=== PATIENT | male | born 1940 | race Caucasian/White ===

== ENCOUNTER 2019-04-12 12:05 | Emergency (ER) | payer MEDICARE, OTHER, SELFPAY ==
[2019-04-12 12:10] VITALS: BP 144/88; PULSE 70; RESP 16; TEMP 36.6; O2SAT 96; BMI 22.8
--- NOTE | 2019-04-12 12:16 | XRR_ITS ---
PROCEDURE INFORMATION: Exam: XR Chest, 1 View Exam date and time: 04/12/2019 12:31 PM Age: 78 years old Clinical indication: Other: Dizzy, nausea, not well; Prior surgery; Surgery date: 6+ months; Surgery type: Open heart TECHNIQUE: Imaging protocol: XR of the chest Views: 1 view. COMPARISON: CR Chest 2 views* [id number] 09/02/2017 1:16 PM FINDINGS: Lungs: Unremarkable. No consolidation. Pleural space: Unremarkable. No pleural effusion. No pneumothorax. Heart/Mediastinum: Unremarkable. No cardiomegaly. Bones/joints: Metallic sternotomy wires are in place. Comparison to prior examination left lower lobe pleural effusion has now resolved XR/XR chest 1V [id number] IMPRESSION: No acute findings. Stable metallic sternotomy wires in place.
[2019-04-12 12:31] LABS: Basophils % 0.5 %; Eosinophils # 0.1 10^3/uL (0.0-0.8); Eosinophils % 0.8 %; Lymphocytes # 0.9 10^3/uL (0.8-4.8); Lymphocytes % 10.7 %; Mean Corpuscular HGB Conc 32.6 g/dL (30.0-36.0); Mean Corpuscular Hemoglobin 30.9 pg (28.0-34.0); Mean Corpuscular Volume 94.9 fL (80-94); Mean Platelet Volume 10.2 fL (7.4-10.4); Monocytes # 0.3 10^3/uL (0.2-0.9); Monocytes % 3.2 %; Neutrophils # 7.4 10^3/uL (1.8-7.7); Neutrophils % 84.6 %; Nucleated Red Blood Cells % 0 %; Platelet Count 122 10^3/cmm (130-400); Red Blood Count 4.53 10^6/uL (4.1-5.3); Red Cell Distribution Width 12.7 % (12.1-15.1); White Blood Count 8.7 10^3/uL (4.0-10.0)
[2019-04-12 12:49] LABS: Alanine Aminotransferase 24 U/L (0-41); Albumin Level 4.5 g/dL (3.5-5.2); Alkaline Phosphatase 109 IU/L (40-130); Anion Gap 15.5 (5-19); Aspartate Amino Transferase 29 U/L (0-40); Blood Urea Nitrogen 21 mg/dL (8-23); Calcium 10.2 mg/Dl (8.8-10.2); Carbon Dioxide 25 mmol/L (22-29); Chloride 102 mmol/L (98-107); Globulin 2.6 g/dL (1.3-4.6); Glucose 151 mg/dL (74-106); Potassium 4.5 mmol/L (3.5-5.1); Sodium 138 mmol/L (136-145); Total Bilirubin 0.6 mg/dL (0.15-1.2); Total Protein 7.1 g/dL (6.6-8.7)
[2019-04-12 12:53] LABS: Influenza A by IFA Negative (Negative); Influenza B by IFA Negative (Negative)
--- NOTE | 2019-04-12 13:56 | ED_ITS ---
Entered by Song Chanel, acting as scribe for Nick Kaur DO Apr 12, 2019 12:05 HPI - Dizziness General: Chief Complaint: Dizziness Stated Complaint: Dizzy, not feeling well Time Seen by Provider: 04/12/19 13:56 History of Present Illness: HPI Narrative: 78 yo male presents with dizziness and nausea. Pt states that he dry heaved since last night. Pt denies chest pain or shortness of breath. Pt states that he will have tunneled vision every so often. pt states that MD elicited complaint: dizziness and difficulty walking Pertinent past history: inner ear problems Description: sense of movement and difficulty walking Exacerbating factors: movement/ambulation Associated symptoms: Reports ear discharge, ear pressure and nausea; Denies chest pain, chills, headache(s), malaise, palpitations or syncope Associated neuro symptoms: Deny confusion or numbness in extremities Review of Systems Const: Denies: fever, chills, body aches, fatigue, malaise or night sweats Eyes: Reports: change in vision; Denies: blurry vision ENMT: Reports: ear discharge Card: Denies: chest pain, palpitations, irregular heart rhythm, edema, syncope, shortness of breath on exertion, shortness of breath when lying down or leg pain with exertion Resp: Denies: shortness of breath, productive cough, non-productive cough or wheezing GI: Reports: nausea : Denies: flank pain, difficulty urinating, painful urination, urinary frequency, urinary urgency, urinary incontinence or blood in urine Musc: Denies: neck pain, back pain, extremity pain, extremity swelling, joint pain or joint swelling Skin/Breast: Denies: rash, itching or redness Neuro: Reports: difficulty walking, dizziness and vertigo; Denies: headache, numbness in extremities, weakness in extremities, changes in sensation, lack of coordination, frequent falls or confusion Psych: Denies: anxiety, depression, loss of interest, visual hallucinations, a uditory hallucinations, suicidal ideation or homicidal ideation Endo: Denies: excessive urination, excessive thirst, tired all the time or cold intolerance Mat/Lymph: Denies: easy bruising, easy bleeding, petechiae, enlarged lymph nodes or tender lymph nodes PFSH ED PFSH: Statuses (acute, chronic, etc) shown below reflect problem list status as previously entered and may not be historically accurate Medical History CHF (congestive heart failure) (Acute) Diabetes (Acute) Hypertension (Acute) Social History Smoking and tobacco status: never smoked Physical Exam Const: COMMON NORMALS: average body habitus, oriented x3 and alert GENERAL APPEARANCE: cooperative, comfortable, well kempt and well developed NUTRITIONAL APPEARANCE: not obese ORIENTATION/CONSCIOUSNESS: Yes awake, Yes oriented to person and Yes oriented to place HENMT: COMMON NORMALS: normocephalic, head/scalp atraumatic, EAC's normal, TM's normal bilaterally, external nose normal, moist oral mucous membranes and oropharynx normal HEAD & SCALP: normocephalic and atraumatic NOSE: external nose normal EXTERNAL AUDITORY CANAL: EAC's normal TYMPANIC MEMBRANE: TM's normal bilaterally MOUTH: oral and palatal mucosa normal, lip normal and tongue normal THROAT: posterior oropharynx normal and tonsils normal Eye: COMMON NORMALS: PERRL, EOMs intact bilaterally, conjunctivae normal and no scleral icterus CONJUNCTIVA: Yes conjunctivae normal PUPIL: Yes PERRL Neck/C-Spine: COMMON NORMALS: full ROM, no lymphadenopathy, supple, no meningeal signs and thyroid normal THYROID: thyroid normal and asymmetrical Lymph: LYMPHATIC: no lymphadenopathy noted Resp: COMMON NORMALS: normal respiratory effort, no retractions, no use of accessory muscles and clear to auscultation bilaterally AUSCULTATION: clear to auscultation bilaterally Cardio: COMMON NORMALS: regular rate and regular rhythm RATE: regular rate RHYTHM: regular rhythm HEART SOUNDS: no murmurs GI: COMMON NORMALS: normal to inspection, nondistended, normoactive bowel sounds, soft to palpation and no hepatosplenomegaly PALPATION: Yes soft and Yes no hepatosplenomegaly : COMMON NORMALS: Yes no CVA tenderness BLADDER/KIDNEY EXAM: Yes no CVA tenderness Back/Pelvis: COMMON NORMALS: no CVA tenderness LUMBAR SPINE/LOWER BACK: Yes normal to inspection Extremity: COMMON NORMALS: no clubbing, cyanosis or edema, no calf tenderness and no pedal edema Neuro: COMMON NORMALS: oriented x3 SENSORIUM/ORIENTATION: Yes alert, Yes oriented to person and Yes oriented to place MENINGEAL SIGNS: Yes no meningeal signs Psych: APPEARANCE: Yes well kempt Skin: COMMON NORMALS: no rashes or lesions noted and skin turgor normal GENERAL SKIN EXAM: no rashes or lesions noted and turgor normal Course ED course: Symptoms reproducible with change in position or movement of head. Continues to have intermittent nausea and vomiting. Did give him some Ativan that helped relieve it. Will discharge home with Ativan and meclizine referral for vestibular rehab with PT. Vital Signs: Vital signs: Vital Signs Temperature 97.8 F 04/12/19 12:10 Pulse Rate 70 04/12/19 12:10 Respiratory Rate 16 04/12/19 12:10 Blood Pressure 144/88 04/12/19 12:10 Pulse Oximetry 96 04/12/19 12:10 MDM - Dizziness Lab Data: Labs: Lab Results 04/12/19 04/12/19 04/12/19 Range/Units 12:20 12:25 12:25 WBC 8.7 (4.0-10.0) 10^3/ uL RBC 4.53 (4.1-5.3) 10^6/u L Hgb 14.0 (11.7-16.6) g/dL Hct 43.0 (42.0-52.0) % MCV 94.9 H (80-94) fL MCH 30.9 (28.0-34.0) pg MCHC 32.6 (30.0-36.0) g/dL RDW 12.7 (12.1-15.1) % Plt Count 122 L (130-400) 10^3/c mm MPV 10.2 (7.4-10.4) fL Neut % (Auto) 84.6 % Lymph % (Auto) 10.7 % [place] % (Auto) 3.2 % Eos % (Auto) 0.8 % Baso % (Auto) 0.5 % Neut # (Auto) 7.4 (1.8-7.7) 10^3/u L Lymph # (Auto) 0.9 (0.8-4.8) 10^3/u L [place] # (Auto) 0.3 (0.2-0.9) 10^3/u L Eos # (Auto) 0.1 (0.0-0.8) 10^3/u L Baso # (Auto) 0.0 (0.0-0.1) 10^3/u L Nucleated RBC % (a uto) 0 % Nucleated RBCs # 0.0 /100WBC Sodium 138 (136-145) mmol/L Potassium 4.5 (3.5-5.1) mmol/L Chloride 102 (98-107) mmol/L Carbon Dioxide 25 (22-29) mmol/L Anion Gap 15.5 (5-19) BUN 21 (8-23) mg/dL Creatinine 0.9 (0.7-1.2) mg/dL Glucose 151 H (74-106) mg/dL Calcium 10.2 (8.8-10.2) mg/Dl Total Bilirubin 0.6 (0.15-1.2) mg/dL AST 29 (0-40) U/L ALT 24 (0-41) U/L Alkaline Phosphata se 109 (40-130) IU/L Total Protein 7.1 (6.6-8.7) g/dL Albumin 4.5 (3.5-5.2) g/dL Globulin 2.6 (1.3-4.6) g/dL Influenza Type A A g Negative (Negative) POC Influenza B Ag Negative (Negative) Discharge Plan Discharge Patient Disposition: Home, Self-Care Clinical Impression: Acute labyrinthitis Condition: Stable Prescriptions: New meclizine 25 mg tablet 25 mg PO QID PRN (Reason: dizziness) Qty: 20 RF: 0 Ativan 0.5 mg tablet 0.5 mg PO Q6H PRN (Reason: dizziness) Qty: 20 RF: 0 Referrals: Emigdio Garcia MD [Primary Care Provider] - Activity Restrictions/Additional Instructions: Follow-up with your physician if not improving Coding Level of Care Code ED Offender Job Retention Specialist for Chg Fwd Exam Problem Focused The documentation recorded by the Darío adrian Kialy, accurately reflects the service I personally performed and the decisions made by Natasha russell Curtis L, DO Apr 12, 2019 12:05
--- NOTE | 2019-04-12 14:37 | CTR_ITS ---
PROCEDURE INFORMATION: Exam: CT Head Without Contrast Exam date and time: 04/12/2019 2:44 PM Age: 78 years old Clinical indication: Patient HX: Severe dizziness x 3days. Popping of left ear. ; Additional info: Dizziness, loss of balance TECHNIQUE: Imaging protocol: Computed tomography of the head without contrast. Total DLP: 818.77 mGy-cm Radiation optimization: All CT scans at this facility use at least one of these dose optimization techniques: automated exposure control; mA and/or kV adjustment per patient size (includes targeted exams where dose is matched to clinical indication); or iterative reconstruction. COMPARISON: CT head wo con* [id number] 07/06/2016 1:57 PM FINDINGS: Brain: There are moderate periventricular and subcortical lucencies consistent with chronic microvascular ischemic changes. Chronic lacunar infarct in the left basal ganglia. Ventricles: Ventricles and sulci are prominent consistent with age appropriate parenchymal volume loss. Bones/joints: Unremarkable. No acute fracture. Sinuses: Visualized sinuses are unremarkable. No fluid levels. Mastoid air cells: Visualized mastoid air cells are well aerated. Soft tissues: Unremarkable. CT/CT head wo con* [id number] IMPRESSION: No acute intracranial abnormality. Chronic microvascular ischemic changes. Radiation Dose CTDIVOL = (mGy): DLP = 818.77 (mGy-cm)
[2019-04-12] MEDS: LORazepam 2 mg/mL INJ 1 mL 0.5 MG IM (15:49)
[2019-04-12 16:52] VITALS: BP 138/79; PULSE 86; RESP 20; O2SAT 96
--- NOTE | 2019-04-14 15:11 | DCPLANNER ---
safety and health manager had message to schedule PT Vestibular rehab for patient. safety and health manager called physical therapy and left a voicemail for clinic to call case making machine operator back about a referral to the clinic.
== END 2019-04-12 16:53 | disposition home or self-care (01) ==
PROVIDERS: Emergency Provider Family Medicine; Family Provider Family Medicine; PCP Family Medicine
DX: H83.09 Labyrinthitis, unspecified ear (principal); I11.0 Hypertensive heart disease with heart failure; I50.9 Heart failure, unspecified; E11.9 Type 2 diabetes mellitus without complications
CPT/HCPCS: 36415; 70450; 71045; 80053; 85025; 87804; 96372; 99282; J2060

== ENCOUNTER → 2019-06-01 10:02 | Outpatient (BNVA) | payer MEDICARE, OTHER, SELFPAY | PROVIDERS: Family Provider Family Medicine; PCP Family Medicine; Visit Provider Otolaryngology | DX: H90.3 Sensorineural hearing loss, bilateral (principal); H69.82 Other specified disorders of Eustachian tube, left ear; J30.89 Other allergic rhinitis; J34.2 Deviated nasal septum; J34.3 Hypertrophy of nasal turbinates | CPT/HCPCS: 96372; 99204; 99214; J3301 ==

== ENCOUNTER 2021-02-08 08:51 | Emergency (ER) | payer MEDICARE, SELFPAY ==
--- NOTE | 2021-02-08 08:56 | XRR_ITS ---
PROCEDURE INFORMATION: Exam: XR Chest Exam date and time: 02/08/2021 8:56 AM Age: 80 years old Clinical indication: Other: Syncope TECHNIQUE: Imaging protocol: XR of the chest. Views: 1 view. Total images: 1 COMPARISON: CR XR chest 1V [id number] 04/12/2019 12:27 PM FINDINGS: Lungs: Unremarkable. No consolidation. Pleural spaces: Unremarkable. No pleural effusion. No pneumothorax. Heart/Mediastinum: Prior coronary artery bypass grafting. Vasculature: Atherosclerosis is evident. Bones/joints: Osseous structures are unchanged from the prior exam. XR/XR chest 1V portable [id number] IMPRESSION: No acute cardiopulmonary process. Radiation Dose CTDIVOL = (mGy): DLP = (mGy-cm)
--- NOTE | 2021-02-08 08:56 | CTR_ITS ---
PROCEDURE INFORMATION: Exam: CT Head Without Contrast Exam date and time: 02/08/2021 8:56 AM Age: 80 years old Clinical indication: Syncope and collapse TECHNIQUE: Imaging protocol: Computed tomography of the head without contrast. Total images: 210 Radiation optimization: All CT scans at this facility use at least one of these dose optimization techniques: automated exposure control; mA and/or kV adjustment per patient size (includes targeted exams where dose is matched to clinical indication); or iterative reconstruction. COMPARISON: CT head wo con* [id number] 04/12/2019 3:19 PM RADIATION DOSE METRICS: Total DLP (mGy-cm): 886.02 FINDINGS: Brain: Global brain atrophy and chronic white matter ischemic changes are present. Cerebral ventricles: Ventricles are appropriate in size for degree of atrophy. Paranasal sinuses: Visualized sinuses are unremarkable. No fluid levels. Mastoid air cells: Visualized mastoid air cells are well aerated. Bones/joints: Temporomandibular joint degeneration. Soft tissues: Unremarkable. CT/CT head wo con* [id number] IMPRESSION: No acute intracranial abnormality. Radiation Dose CTDIVOL = (mGy): DLP = 886.02 (mGy-cm)
--- NOTE | 2021-02-08 08:57 | ECG_ITS ---
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 Measurements Intervals [place] Rate: 68 P: 54 [place]: 162 QRS: -44 QRSD: 141 T: 81 QT: 408 QTc: 435 Interpretive Statements SINUS RHYTHM LEFT AXIS DEVIATION [QRS AXIS < -30] RIGHT BUNDLE BRANCH BLOCK [120+ ms QRS DURATION, UPRIGHT V1, 40+ ms S IN I/aVL/V4/V5/V6] ANTEROSEPTAL MYOCARDIAL INFARCTION , OF INDETERMINATE AGE [40+ ms Q WAVE IN V1-V4] Compared to ECG 08/19/2017 02:12:12 Myocardial infarct finding now present Atrial abnormality no longer present Electronically Signed On 02-09-2021 13:19:21 DIRECTOR OF HUMAN RESOURCES by Marely Echeverria M.D. [id number]
--- NOTE | 2021-02-08 08:57 | W.ED.SYNCOPE ---
HPI - Syncope General: Chief Complaint: Syncope Stated Complaint: UNRESPONSIVE ON SCENE Time Seen by Provider: 02/08/21 08:53 History of Present Illness: HPI narrative: 80-year-old male with history of diabetes presents after syncopal episode. States he was working in the yard earlier this morning. He felt diffuse weakness but denies any focal numbness weakness tingling vision change hearing change or vertigo. He came back inside and sat in his chair and was witnessed by his to have a brief syncopal episode while sitting. He became completely unresponsive for several seconds. No convulsions. Did not appear confused after the fact. He denies any focal pain. Denies chest pain shortness of breath or palpitations specifically. Review of Systems Narrative: - CONSTITUTIONAL: Denies weight loss, fever and chills. - HEENT: Denies changes in vision and hearing. - RESPIRATORY: Denies SOB and cough. - CV: Denies palpitations and CP. - GI: Denies abdominal pain, nausea, vomiting and diarrhea. - : Denies dysuria and urinary frequency. - MSK: Denies myalgia and joint pain. - SKIN: Denies rash and pruritus. - NEUROLOGICAL: Denies headache, weakness, numbness. - PSYCHIATRIC: Denies suicidal ideation PFSH ED PFSH: Medical History Allergic rhinitis Aortic valve stenosis Atherosclerotic heart disease CHF (congestive heart failure) Chronic eustachian tube dysfunction Deviated septum Diabetes Hx of cardiomyopathy Hypertension Nasal turbinate hypertrophy Nonalcoholic fatty liver disease Sensorineural hearing loss Valvular heart disease Surgical History Hx of CABG Family History Father CAD (coronary artery disease) Diabetes Lung disease Grandmother Diabetes Family/Other Cancer Mother Dementia Denies family history of Clotting disorder Chronic kidney disease (CKD) Suicide Anesthesia complication Bleeding disorder Stroke Social History Smoking and tobacco status: never smoked Alcohol intake: never Physical Exam Narrative: EXAM NARRATIVE: - GENERAL: Alert and oriented x 3. No acute distress. Well-nourished. - EYES: EOMI. Anicteric. - HENT: Atraumatic, no C-spine tenderness. Moist mucous membranes. No scleral icterus. No cervical lymphadenopathy. - LUNGS: Clear to auscultation bilaterally. No accessory muscle use. Equal lung sounds bilaterally. No respiratory distress. - CARDIOVASCULAR: Well-healed midline sternotomy scar in place. Regular rate and rhythm. No murmur. No JVD. - ABDOMEN: Soft, non-tender and non-distended. Negative CVA tenderness bilaterally, no rebound or guarding, negative Montero sign. No palpable masses. - EXTREMITIES: No edema. Non-tender. - SKIN: No rashes or lesions. Warm. - NEUROLOGIC: No meningismus or focal neurological deficits. CN II-XII grossly intact. - PSYCHIATRIC: Cooperative. Appropriate mood and affect. Course Vital Signs: Vital signs: Vital Signs Temperature 97.4 F L 02/08/21 09:05 Pulse Rate 84 02/08/21 13:36 Respiratory Rate 18 02/08/21 13:36 Blood Pressure 112/72 02/08/21 13:36 Pulse Oximetry 92 02/08/21 13:36 MDM - Syncope MDM Narrative: Medical decision making narrative: 80-year-old male presents after syncopal episode. Nonfocal neurologic exam. Denies any focal pain. EKG does not reveal any sign of acute ischemia or other acute abnormality. Initial high-sensitivity troponin mildly elevated 30s but repeat is downtrending. Denies any chest pain or shortness of breath. BNP very mildly elevated but no signs of volume overload. Discussed with hospitalist, Dr. Hemphill, and at this time recommends echocardiogram in the emergency department and does not recommend admission. Echocardiogram was ordered. Discussed results with is technician Dr. Echeverria, who states that at this time there is an ejection fraction in the 30s and some wall motion abnormality that is exactly the same as previous echo. This time does not recommend admission believe echo stable. Does recommend outpatient event monitor which was ordered. At this time I believe patient would be safe for discharge and outpatient follow-up. Return precautions provided. Plan was reviewed with the patient who expressed understanding. Questions answered. Patient will follow up with PCP. Patient discharged in stable condition. Lab Data: Labs: Lab Results 02/08/21 02/08/21 02/08/21 08:25 08:25 08:25 WBC 13.7 10^3/uL H 10 ^3/uL (4.0-10.0) RBC 4.47 10^6/uL 10^6 /uL (4.1-5.3) Hgb 14.2 g/dL g/dL (11.7-16.6) Hct 44.2 % % (42.0-52.0) MCV 98.9 fl H fl (80-94) MCH 31.8 pg pg (28.0-34.0) MCHC 32.1 g/dL g/dL (30.0-36.0) RDW 12.8 % % (12.1-15.1) Plt Count 149 10^3/cmm 10^3 /cmm (130-400) MPV 11.0 fL H fL (7.4-10.4) Neut % (Auto) 70.7 % % Lymph % (Auto) 19.5 % % [place] % (Auto) 6.8 % % Eos % (Auto) 2.1 % % Baso % (Auto) 0.5 % % Neut # (Auto) 9.68 10^3/uL H 10 ^3/uL (1.8-7.7) Lymph # (Auto) 2.7 10^3/uL 10^3/ uL (0.8-4.8) [place] # (Auto) 0.9 10^3/uL 10^3/ uL (0.2-0.9) Eos # (Auto) 0.3 10^3/uL 10^3/ uL (0.0-0.8) Baso # (Auto) 0.1 10^3/uL 10^3/ uL (0.0-0.1) Nucleated RBC % (a uto) 0 % % Nucleated RBCs # 0.0 /100WBC /100W BC Sodium 139 mmol/L mmol/L (136-145) Potassium 4.2 mmol/L mmol/L (3.5-5.1) Chloride 99 mmol/L mmol/L (98-107) Carbon Dioxide 28 mmol/L mmol/L (22-29) Anion Gap 16.2 (5-19) BUN 18 mg/dL mg/dL (8-23) Creatinine 0.7 mg/dL mg/dL (0.7-1.2) GFR Calculation Not Reportable Glucose 135 mg/dL H mg/dL (65-115) Calculated Osmolal ity 292 mOsm/kg mOsm/ kg (285-295) Calcium 9.0 mg/dL mg/dL (8.5-10.5) Total Bilirubin 0.9 mg/dL mg/dL (0.15-1.2) AST 33 U/L U/L (0-40) ALT 37 U/L U/L (0-41) Alkaline Phosphata se 115 IU/L IU/L (40-130) Troponin T Baselin e 37 ng/L H ng/L (0-15) Troponin T 120 Min [place] Delta Troponin T Troponin T Hi Sens 6Hr Troponin T Hi Sens 6Hr Delta NT-Pro-B Natriuret Pep 561 pg/mL H pg/mL (0-450) Total Protein 6.3 g/dL L g/dL (6.6-8.7) Albumin 4.0 g/dL g/dL (3.5-5.2) Globulin 2.3 g/dL g/dL (1.3-4.6) TSH 2.25 uIU/mL uIU/m L (0.27-4.20) Free T4 1.06 ng/dL ng/dL (0.82-1.77) Urine Color Urine Appearance Urine pH Ur Specific Gravit y Urine Protein Urine Glucose (UA) Urine Ketones Urine Blood Urine Nitrate Urine Bilirubin Urine Urobilinogen Ur Leukocyte Ivan[place] ase Urine RBC Urine WBC Ur Squamous Epith Cells Amorphous Sediment Urine Bacteria Urine Mucus SARS-CoV-2 Ag (Rap id) 02/08/21 02/08/21 02/08/21 09:08 10:25 13:03 WBC RBC Hgb Hct MCV MCH MCHC RDW Plt Count MPV Neut % (Auto) Lymph % (Auto) [place] % (Auto) Eos % (Auto) Baso % (Auto) Neut # (Auto) Lymph # (Auto) [place] # (Auto) Eos # (Auto) Baso # (Auto) Nucleated RBC % (a uto) Nucleated RBCs # Sodium Potassium Chloride Carbon Dioxide Anion Gap BUN Creatinine GFR Calculation Glucose Calculated Osmolal ity Calcium Total Bilirubin AST ALT Alkaline Phosphata se Troponin T Baselin e Troponin T 120 Min [place] 16.70 ng/L H ng/L (0-15) Delta Troponin T -20.30 ABS# L ABS # (0-10) Troponin T Hi Sens 6Hr Troponin T Hi Sens 6Hr Delta NT-Pro-B Natriuret Pep Total Protein Albumin Globulin TSH Free T4 Urine Color Yellow (Yellow) Urine Appearance Clear (CLEAR) Urine pH 5 (5-7) Ur Specific Gravit y 1.015 (1.005-1.030) Urine Protein Neg (Negative) Urine Glucose (UA) Norm (Normal) Urine Ketones Negative (Negative) Urine Blood Neg (Negative) Urine Nitrate Negative (Negative) Urine Bilirubin Neg (Negative) Urine Urobilinogen Norm mg/dL mg/dL (Negative) Ur Leukocyte Ivania ase Negative (Negative) Urine RBC 5-10 /hpf H /hpf (0-2) Urine WBC 0-4 /hpf H /hpf (0-5) Ur Squamous Epith Cells Rare /hpf /hpf (0-5) Amorphous Sediment Not Reportable Urine Bacteria Trace /hpf /hpf (NONE) Urine Mucus Trace /hpf /hpf SARS-CoV-2 Ag (Rap id) Negative (Negative) 02/08/21 14:21 WBC RBC Hgb Hct MCV MCH MCHC RDW Plt Count MPV Neut % (Auto) Lymph % (Auto) [place] % (Auto) Eos % (Auto) Baso % (Auto) Neut # (Auto) Lymph # (Auto) [place] # (Auto) Eos # (Auto) Baso # (Auto) Nucleated RBC % (a uto) Nucleated RBCs # Sodium Potassium Chloride Carbon Dioxide Anion Gap BUN Creatinine GFR Calculation Glucose Calculated Osmolal ity Calcium Total Bilirubin AST ALT Alkaline Phosphata se Troponin T Baselin e Troponin T 120 Min [place] Delta Troponin T Troponin T Hi Sens 6Hr 29.46 ng/L H ng/L (0-15) Troponin T Hi Sens 6Hr Delta -7.54 ng/L L ng/L (0-12) NT-Pro-B Natriuret Pep Total Protein Albumin Globulin TSH Free T4 Urine Color Urine Appearance Urine pH Ur Specific Gravit y Urine Protein Urine Glucose (UA) Urine Ketones Urine Blood Urine Nitrate Urine Bilirubin Urine Urobilinogen Ur Leukocyte Ivan[place] ase Urine RBC Urine WBC Ur Squamous Epith Cells Amorphous Sediment Urine Bacteria Urine Mucus SARS-CoV-2 Ag (Rap id) EKG Data^: EKG 1: Other EKG Comments: Normal sinus rhythm rate of 68, right bundle branch block is present, no sign of acute ischemia or other acute abnormality. Discharge Plan Discharge Prescriptions: No Action aspirin [Adult Aspirin Regimen] 81 mg tablet,delayed release (DR/EC) 81 mg PO DAILY RF: 0 metformin 500 mg tablet 250 mg PO BID RF: 0 atorvastatin [Lipitor] 20 mg tablet 20 mg PO QDAY Qty: 90 RF: 3 Coding Level of Care Code ED Coagulant Dipper for Peyton Yeager
[2021-02-08 09:05] VITALS: BP 128/71; PULSE 71; RESP 18; TEMP 36.3; O2SAT 96; BMI 20.8
[2021-02-08 09:08] VITALS: PULSE 75; RESP 16; O2SAT 96
[2021-02-08 09:16] LABS: Basophils # 0.1 10^3/uL (0.0-0.1); Basophils % 0.5 %; Eosinophils # 0.3 10^3/uL (0.0-0.8); Eosinophils % 2.1 %; Hematocrit 44.2 % (42.0-52.0); Hemoglobin 14.2 g/dL (11.7-16.6); Lymphocytes # 2.7 10^3/uL (0.8-4.8); Lymphocytes % 19.5 %; Mean Corpuscular HGB Conc 32.1 g/dL (30.0-36.0); Mean Corpuscular Hemoglobin 31.8 pg (28.0-34.0); Mean Corpuscular Volume 98.9 fl (80-94); Monocytes # 0.9 10^3/uL (0.2-0.9); Monocytes % 6.8 %; Neutrophils # 9.68 10^3/uL (1.8-7.7); Neutrophils % 70.7 %; Nucleated Red Blood Cells % 0 %; Platelet Count 149 10^3/cmm (130-400); Red Blood Count 4.47 10^6/uL (4.1-5.3); Red Cell Distribution Width 12.8 % (12.1-15.1); White Blood Count 13.7 10^3/uL (4.0-10.0)
[2021-02-08 09:40] LABS: Troponin(5th) Baseline 37 ng/L (0-15)
[2021-02-08 09:51] LABS: Alanine Aminotransferase 37 U/L (0-41); Alkaline Phosphatase 115 IU/L (40-130); Anion Gap 16.2 (5-19); Aspartate Amino Transferase 33 U/L (0-40); Blood Urea Nitrogen 18 mg/dL (8-23); Carbon Dioxide 28 mmol/L (22-29); Chloride 99 mmol/L (98-107); Free T4 Free Thyroxine 1.06 ng/dL (0.82-1.77); Globulin 2.3 g/dL (1.3-4.6); Glucose 135 mg/dL (65-115); NT Pro B Type Natriuretic Pept 561 pg/mL (0-450); Osmolality Calculated 292 mOsm/kg (285-295); Potassium 4.2 mmol/L (3.5-5.1); Sodium 139 mmol/L (136-145); Thyroid Stimulating Hormone 2.25 uIU/mL (0.27-4.20); Total Bilirubin 0.9 mg/dL (0.15-1.2); Total Protein 6.3 g/dL (6.6-8.7)
[2021-02-08 09:53] LABS: SARS Covid-2 Antigen Negative (Negative)
[2021-02-08 10:14] VITALS: BP 112/70; PULSE 70; RESP 16; O2SAT 95
--- NOTE | 2021-02-08 10:42 | PC.NURSE ---
Pt attempts to provide urine sample but is unable to at this time.
--- NOTE | 2021-02-08 10:57 | ECG_ITS ---
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 Measurements Intervals [place] Rate: 75 P: 55 [place]: 151 QRS: -50 QRSD: 141 T: 85 QT: 399 QTc: 447 Interpretive Statements SINUS RHYTHM RIGHT BUNDLE BRANCH BLOCK [120+ ms QRS DURATION, UPRIGHT V1, 40+ ms S IN I/aVL/V4/V5/V6] LEFT ANTERIOR FASCICULAR BLOCK [QRS AXIS <= -45, QR IN I, RS IN II] ANTEROSEPTAL MYOCARDIAL INFARCTION , OF INDETERMINATE AGE [40+ ms Q WAVE IN V1-V4] Compared to ECG 02/08/2021 09:08:31 Left anterior fascicular block now present Left-axis deviation no longer present Myocardial infarct finding still present Electronically Signed On 02-09-2021 13:25:40 RULING TECHNICIAN by Marely Echeverria M.D. [id number]
[2021-02-08 12:18] VITALS: BP 112/60; PULSE 83; RESP 18; O2SAT 94
[2021-02-08 13:29] LABS: Bilirubin Urine Neg (Negative); Blood Urine Neg (Negative); Glucose Urine UA Norm (Normal); Ketones Urine Negative (Negative); Leukocyte Esterase Urine Negative (Negative); Nitrate Urine Negative (Negative); Protein Urine Neg (Negative); Specific Gravity, Urine 1.015 (1.005-1.030); Urine Appearance Clear (CLEAR); Urine Color Yellow (Yellow); Urobilinogen Urine Norm (Negative); pH Urine 5 (5-7)
[2021-02-08 13:32] LABS: WBC Urine 0-4 /hpf (0-5)
[2021-02-08 13:33] LABS: Add Urine Culture? No; Bacteria Urine TRACE /hpf; Mucus Urine TRACE /hpf; Squamous Epithelial Cell Urine RARE /hpf (0-5)
[2021-02-08 13:36] VITALS: BP 112/72; PULSE 84; RESP 18; O2SAT 92
--- NOTE | 2021-02-08 13:40 | USCV_ITS ---
Elilott Sumner Age: 80 Gender: M : 1940 Exam Date: 02/08/2021 14:08 Ordering Phys: Jomar Calvo MD Technologist: [place] [facility] [place]: ? NEW NE BP: 120 / 71 HR: 89 Rhythm: Sinus Technical Quality: Adequate MEASUREMENTS (Male / Female) Normal Values 2D ECHO LV Diastolic Diameter PLAX 4.5 cm 4.2 - 5.9 / 3.9 - 5.3 cm LV Systolic Diameter PLAX 3.5 cm IVS Diastolic Thickness 1.2 cm 0.6 - 1.0 / 0.6 - 0.9 cm IVS Systolic Thickness 1.1 cm LVPW Diastolic Thickness 1.1 cm 0.6 - 1.0 / 0.6 - 0.9 cm LVPW Systolic Thickness 1.1 cm LVOT Diameter 2.0 cm LV Ejection Fraction 2D Teich 24.8 % LV Ejection Fraction MOD 2C 39.4 % LV Ejection Fraction 2C AL 38.8 % LA Diameter 4.7 cm LA Width 3.7 cm LA Height 3.7 cm RA Width 3.0 cm RA Height 4.5 cm DOPPLER AV Peak Velocity 204.0 cm/s LVOT Peak Velocity 126.0 cm/s AV Area Cont Eq vti 1.7 cm squared AV Area Cont Eq pk 2.0 cm squared MV Area PHT 5.1 cm squared Mitral E to A Ratio 0.4 MV E' Velocity 43.0 cm/s Mitral E to MV E' Ratio 8.5 Mitral E to LV E' Lateral Ratio 7.3 Mitral E to LV E' Septal Ratio 10.4 TR Peak Velocity 116.0 cm/s TR Peak Gradient 5.4 mmHg TV Peak E Velocity 73.0 cm/s Right Atrial Pressure 3.0 mmHg Pulmonary Artery Systolic Pressu 8.4 mmHg FINDINGS Left Ventricle Mild dilated left ventricle cavity. Moderately decreased left ventricular systolic function. Left ventricular ejection fraction is estimated at 30-35 %. There is severe hypokinesis of mid to apical anteroseptal, mid to apical inferoseptal, mid to apical inferior and apical puentes. Grade I diastolic dysfunction (abnormal relaxation filling pattern), normal to mildly elevated filling pressures. Right Ventricle Right ventricle not well visualized. Probably normal right ventricular size and systolic function. RVSP could not be calculated due to incomplete tricuspid regurgitation velocity profile. Right Atrium Normal right atrial size. Aneurysmal interatrial septum. Left Atrium Mildly increased left atrial size. Mitral Valve Moderate mitral annular calcification. Thickened mitral valve. No mitral valve stenosis. No mitral valve regurgitation. Aortic Valve Bioprosthetic aortic valve in situ. Well-seated and normally functioning. LVOT peak velocity 2 m/s, peak gradient 17 and mean gradient 6 mmHg and aortic valve area by continuity equation of 1.7 cm squared. Tricuspid Valve Structurally normal tricuspid valve. No tricuspid valve stenosis. Trace tricuspid valve regurgitation. Pulmonic Valve Pulmonic valve not well visualized. Pericardium No pericardial effusion. Aorta Normal-sized aortic root. CONCLUSIONS 1. Mild dilated left ventricle cavity. Moderately decreased left ventricular systolic function. Left ventricular ejection fraction is estimated at 30-35 %. There is severe hypokinesis of mid to apical anteroseptal, mid to apical inferoseptal, mid to apical inferior and apical puentes. Grade I diastolic dysfunction (abnormal relaxation filling pattern), normal to mildly elevated filling pressures. 2. Well-seated and normally functioning bioprosthetic aortic valve. Mean gradient 6 mmHg. 3. When compared to previous echocardiogram images dated 08/20/2018, there may not have been any significant change. Marely Echeverria MD (Electronically Signed) Final Date: 08 February 2021 16:55 S
[2021-02-08 14:57] LABS: Troponin 5 6HR 29.46 ng/L (0-15)
[2021-02-08 15:21] LABS: Troponin 5 6HR Delta -7.54 ng/L (0-12)
[2021-02-08 17:08] VITALS: BP 114/65; PULSE 92; RESP 18; O2SAT 94
== END 2021-02-08 17:01 | disposition home or self-care (01) ==
PROVIDERS: Emergency Provider Emergency Medicine; PCP Family Medicine
DX: R55 Syncope and collapse (principal); Z79.82 Long term (current) use of aspirin; Z79.84 Long term (current) use of oral hypoglycemic drugs; E11.9 Type 2 diabetes mellitus without complications; I11.0 Hypertensive heart disease with heart failure; I50.9 Heart failure, unspecified; Z95.1 Presence of aortocoronary bypass graft; Z20.822 Contact with and (suspected) exposure to COVID-19
CPT/HCPCS: 70450; 71045; 80053; 81001; 83880; 84439; 84443; 84484; 85025; 87426; 93005; 93271; 93306; 99284

== ENCOUNTER → 2021-02-18 13:40 | Outpatient (BNVA) | payer MEDICARE, SELFPAY | PROVIDERS: PCP Family Medicine; Visit Provider Nurse Practitioner | DX: Z20.822 Contact with and (suspected) exposure to COVID-19 (principal) | CPT/HCPCS: 87426 ==

== ENCOUNTER → 2021-02-19 11:28 | Outpatient (BNVA) | payer MEDICARE, SELFPAY | PROVIDERS: PCP Family Medicine; Visit Provider Nurse Practitioner | DX: Z20.822 Contact with and (suspected) exposure to COVID-19 (principal) | CPT/HCPCS: 87426; 87635 ==

== ENCOUNTER 2021-04-21 07:12 | Outpatient (CLI) | payer MEDICARE, SELFPAY ==
--- NOTE | 2021-04-21 07:29 | NMCV_ITS ---
NM card bld pool r or s*[id number] Elliott Sumner Age: 81 Gender: M : 1940 Exam Date: 04/21/2021 07:29 Ordering Phys: Khoi Ly MD ([email or web address]) Technologist: DEE Barker Exam Location: [facility] Indications: ISCHEMIC CARDIOMYOPATHY Camera Used: RSens Imaging Protocol: three view gated blood pool study Technical Image Quality: Good Dose: Admin Site: Administered By: [id number] Tagged RBCs: 27.5 IV - Right DEE Holman Antecubital PYP: EJECTION FRACTION: Automatic LV EF: 35 Rest RV EF: Manual LV EF: FINDINGS Diffuse hypokinesia of the left ventricle Ejection fraction of 35% CONCLUSIONS Moderately diminished left ventricle ejection fraction of 35%. Diffuse hypokinesia of the left ventricle. Dr Khoi Ly MD FAC (Electronically Signed) Final Date: 21 April 2021 23:24 S
== END 2021-04-21 07:13 | disposition home or self-care (01) ==
PROVIDERS: PCP Family Medicine; Visit Provider Internal Medicine Cardiovascular Disease
DX: I25.5 Ischemic cardiomyopathy (principal); Z86.79 Personal history of other diseases of the circulatory system; I51.89 Other ill-defined heart diseases
CPT/HCPCS: 78472; A9560; J1642

== ENCOUNTER → 2021-05-06 09:07 | Outpatient (BNVA) | payer MEDICARE, SELFPAY | PROVIDERS: PCP Family Medicine; Visit Provider Nurse Practitioner Family | DX: I10 Essential (primary) hypertension (principal); Z86.79 Personal history of other diseases of the circulatory system ==

== ENCOUNTER → 2021-06-04 15:26 | Outpatient (BNVA) | payer MEDICARE, SELFPAY | PROVIDERS: PCP Family Medicine; Visit Provider Nurse Practitioner Family | DX: R94.30 Abnormal result of cardiovascular function study, unspecified (principal); Z86.79 Personal history of other diseases of the circulatory system; Z45.02 Encounter for adjustment and management of automatic implantable cardiac defibrillator; I11.0 Hypertensive heart disease with heart failure; I50.9 Heart failure, unspecified | CPT/HCPCS: 99214 ==

== ENCOUNTER → 2021-07-16 14:36 | Outpatient (BNVA) | payer MEDICARE, SELFPAY | PROVIDERS: PCP Family Medicine; Visit Provider Nurse Practitioner Family | DX: I95.9 Hypotension, unspecified (principal); Z86.79 Personal history of other diseases of the circulatory system; Z95.1 Presence of aortocoronary bypass graft; Z79.82 Long term (current) use of aspirin | CPT/HCPCS: 99213; 99214 ==

== ENCOUNTER 2021-08-15 14:25 | Outpatient (CLI) | payer MEDICARE, SELFPAY ==
--- NOTE | 2021-08-15 15:00 | USCV_ITS ---
Elliott Sumner Age: 81 Gender: M : 1940 Exam Date: 08/15/2021 14:42 Ordering Phys: Yasmin Frias Technologist: MARIUSZ [place] [facility] [place]: HISTORY OF CARDIOMYOPATHY BP: 120 / 60 HR: 88 Rhythm: Sinus Technical Quality: Adequate MEASUREMENTS (Male / Female) Normal Values 2D ECHO LV Diastolic Diameter PLAX 5.1 cm 4.2 - 5.9 / 3.9 - 5.3 cm LV Systolic Diameter PLAX 3.8 cm IVS Diastolic Thickness 1.1 cm 0.6 - 1.0 / 0.6 - 0.9 cm IVS Systolic Thickness 1.4 cm LVPW Diastolic Thickness 1.2 cm 0.6 - 1.0 / 0.6 - 0.9 cm LVPW Systolic Thickness 1.6 cm LVOT Diameter 2.0 cm LV Ejection Fraction 2D Teich 50.6 % LV Ejection Fraction MOD 2C 50.0 % LV Ejection Fraction 2C AL 49.5 % LA Diameter 3.1 cm LA Width 3.7 cm LA Height 4.3 cm RA Width 3.9 cm RA Height 4.5 cm Aorta at Sinotubular Diameter 2.0 cm IVC Diameter 1.5 cm M-MODE Aortic Annulus Diameter 2.9 cm LA Ao Ratio MM 0.9 MV E Point Septal Separation 2.2 cm DOPPLER AV Peak Velocity 252.5 cm/s LVOT Peak Velocity 95.0 cm/s AV Area Cont Eq vti 1.3 cm squared AV Area Cont Eq pk 1.2 cm squared MV Peak Velocity 153.0 cm/s MV Area PHT 3.5 cm squared Mitral E to A Ratio 0.8 MV E' Velocity 53.0 cm/s Mitral E to MV E' Ratio 12.0 Mitral E to LV E' Lateral Ratio 13.9 Mitral E to LV E' Septal Ratio 10.6 TV Peak E Velocity 56.0 cm/s Right Atrial Pressure 3.0 mmHg FINDINGS Left Ventricle Mildly dilated LV cavity. Hypokinetic and thinned out septal and anteroseptal segments. Hypokinetic basal inferior wall segment. already ejection fraction of 49%.Grade I/IV diastolic dysfunction (abnormal relaxation filling pattern), normal to mildly elevated filling pressures. Right Ventricle Normal right ventricular size and systolic function. Right Atrium The right atrium is normal in size. Left Atrium Mildly increased left atrial size. Mitral Valve Thickened mitral valve. Moderate mitral annular calcification. Trace mitral valve regurgitation. Aortic Valve Moderate aortic valve stenosis, mean gradient 13.4 mmHg, ANTHONY 1.3 cm squared. Moderate aortic valve calcification. Tricuspid Valve Trace tricuspid valve regurgitation. Pulmonic Valve No gross abnormalities noted Pericardium Normal pericardium without effusion. Aorta Normal aortic annulus size. IVC The inferior vena cava pulmonary and hepatic veins appear normal. CONCLUSIONS Mildly dilated LV cavity. Hypokinetic and thinned out septal and anteroseptal segments. Hypokinetic basal inferior wall segment. already ejection fraction of 49%.Grade I/IV diastolic dysfunction (abnormal relaxation filling pattern), normal to mildly elevated filling pressures. Mildly increased left atrial size. Thickened mitral valve. Moderate mitral annular calcification. Trace mitral valve regurgitation. Moderate aortic valve stenosis, mean gradient 13.4 mmHg, ANTHONY 1.3 cm squared. Moderate aortic valve calcification. Trace tricuspid valve regurgitation. PA pressure could not be calculated because of the poor Doppler signals There is no pericardial effusion. There are no intracardiac masses. Compared to the study from 02/08/2021, there is significant improvement of the LV ejection fraction-from 30 -35% to 49% Dr Khoi Ly MD [facility] (Electronically Signed) Final Date: 15 Aug 2021 17:35 S
== END 2021-08-15 14:26 | disposition home or self-care (01) ==
LOC: RAD 14:31
PROVIDERS: PCP Family Medicine; Visit Provider Nurse Practitioner Family
DX: I42.9 Cardiomyopathy, unspecified (principal); I08.3 Combined rheumatic disorders of mitral, aortic and tricuspid valves
CPT/HCPCS: 93306; 99214

== ENCOUNTER → 2021-10-09 12:52 | Outpatient (BNVA) | payer MEDICARE, SELFPAY | PROVIDERS: PCP Family Medicine; Visit Provider Internal Medicine Cardiovascular Disease | DX: I25.5 Ischemic cardiomyopathy (principal); Z86.79 Personal history of other diseases of the circulatory system; R06.02 Shortness of breath; I50.33 Acute on chronic diastolic (congestive) heart failure | CPT/HCPCS: 80048; 83880 ==

== ENCOUNTER 2022-01-15 08:38 | Emergency (ER) | payer MEDICARE, SELFPAY ==
[2022-01-15 08:46] VITALS: BP 94/59; PULSE 86; RESP 18; TEMP 36.4; O2SAT 94
--- NOTE | 2022-01-15 08:48 | XRR_ITS ---
PROCEDURE INFORMATION: Exam: XR Right Knee Exam date and time: 01/15/2022 9:01 AM Age: 81 years old Clinical indication: Pain; Knee; Right TECHNIQUE: Imaging protocol: Radiologic exam of the Right knee. Views: 3 views. AP Obilque Lateral COMPARISON: No relevant prior studies available. FINDINGS: Bones/joints: There are 3 compartment small degenerative osteophytes with some tibial spine degenerative osteophytes. Mild chondrocalcinosis is seen. [id number] patellofemoral compartment joint space narrowing is seen, suggestive of osteoarthritic change. There are no fractures or dislocations. There are no joint bodies. Soft tissues: There is a medium sized joint effusion. There are no radiopaque foreign bodies. There is mild knee region soft tissue swelling. Multiple surgical clips are seen in the posterior lower knee region. Moderate to severe atherosclerotic vascular calcifications are seen. Notes: If there is further concern, recommend follow-up radiographs or MRI for complete assessment. XR/XR knee RT 3V* [id number] IMPRESSION: Degenerative changes of the right knee, as noted above. Medium sized knee joint effusion.
--- NOTE | 2022-01-15 08:48 | XRR_ITS ---
PROCEDURE INFORMATION: Exam: XR Right Hip Exam date and time: 01/15/2022 9:01 AM Age: 81 years old Clinical indication: Hip pain; Right hip TECHNIQUE: Imaging protocol: Radiologic exam of the Right hip. Views: 1 view hip with pelvis when performed. COMPARISON: No relevant prior studies available. FINDINGS: Bones/joints: There is normal alignment without fractures or dislocations. There is generalized osteopenia. Mild joint space narrowing and small osteophytes are seen, consistent with osteoarthritic change. The visualized right sacroiliac joint shows severe degenerative changes. Soft tissues: There is no radiographic soft tissue swelling. There are no radiopaque foreign bodies. Severe atherosclerotic vascular calcifications are seen. Notes: If there is further concern, recommend follow-up radiographs or MRI for complete assessment. XR/XR hip RT 2-3V wo/w pel* [id number] IMPRESSION: No fracture or dislocation of the right hip. Degenerative changes, as noted above.
--- NOTE | 2022-01-15 08:53 | XRR_ITS ---
PROCEDURE INFORMATION: Exam: XR Chest Exam date and time: 01/15/2022 9:01 AM Age: 81 years old Clinical indication: Cough and dyspnea; Additional info: Dyspnea/cough TECHNIQUE: Imaging protocol: Radiologic exam of the chest. Views: 1 view. COMPARISON: CR (CHEST, ) 02/08/2021 9:24 AM FINDINGS: Lungs: Normal lung volumes. No interstitial or airspace opacities. Pleural spaces: No pleural effusion. No pneumothorax. Heart/Mediastinum: Normal heart size. The patient is status post median sternotomy and coronary artery bypass graft surgery with sternal wires. There is an unchanged mildly tortuous thoracic aorta. Midline trachea. Bones/joints: No acute abnormalities. Unchanged mild dextroconvex scoliosis of the thoracic spine is seen. XR/XR chest 1V portable [id number] IMPRESSION: No chest radiographic evidence of acute cardiopulmonary disease.
--- NOTE | 2022-01-15 09:24 | ECG_ITS ---
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 Measurements Intervals [place] Rate: 90 P: 58 NV: 165 QRS: -42 QRSD: 145 T: 71 QT: 380 QTc: 465 Interpretive Statements SINUS RHYTHM LEFT AXIS DEVIATION [QRS AXIS < -30] RIGHT BUNDLE BRANCH BLOCK [120+ ms QRS DURATION, UPRIGHT V1, 40+ ms S IN I/aVL/V4/V5/V6] VOLTAGE CRITERIA FOR LVH [MEETS CRITERIA IN ONE OF: R(aVL), S(V1), R(V5), R(V5/V6)+S(V1)] POSSIBLE SEPTAL MYOCARDIAL INFARCTION , OF INDETERMINATE AGE [30 ms Q WAVE IN V1/V2] MODERATE T-WAVE ABNORMALITY, CONSIDER LATERAL ISCHEMIA [-0.1+ mV T-WAVE IN I/aVL/V5/V6] Compared to ECG 02/08/2021 10:23:31 Left-axis deviation now present T-wave abnormality now present Possible ischemia now present Left anterior fascicular block no longer present Myocardial infarct finding still present Electronically Signed On 01-15-2022 11:06:55 CDT by Kishore Persaud M.D. [id number]
--- NOTE | 2022-01-15 09:31 | ED_ITS ---
HPI - Extremity Problem General: Chief complaint: Extremity Problem,Nontraumatic Stated complaint: hip/knee pain Time Seen by Provider: 01/15/22 08:41 Source: patient Mode of arrival: ambulatory History of Present Illness: 81-year-old male patient presents emergency room complaining of right hip and right knee pain for the last several months. 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 He states initially it had been in the right hip right hip feels fine now and its moved over to the left hip. He denies any chest pain or shortness of breath he has no recent trauma. Patient has a known history of cardiomyopathy and was on a LifeVest but evidently became annoyed with the vest no longer wish to wear it so he stopped. He usually sees our cardiology clinic. He has no complaints of chest pain or shortness of breath this time his only focuses on the knee and hip pain. He does not recall any particular precipitating event trauma or fall related to this. MD Complaint: joint pain Onset (ago): month(s) Pain Consistency: intermittent Location: left, lower extremity (Hip) and knee Quality: aching Radiation: none Relieving factors: nothing Exacerbating factors: nothing Associated symptoms: Deny chest pain, fever(s) or rash Review of Systems Const: Denies: fever(s), chills, body aches, change in appetite, fatigue or malaise ENMT: Denies: throat pain, ear or mastoid pain, nasal discharge or nasal congestion Card: Denies: chest pain, edema, dyspnea on exertion or orthopnea Resp: Denies: dyspnea, productive cough or non-productive cough GI: Denies: abdominal pain, nausea, vomiting, hematemesis, coffee ground emesis, diarrhea, constipation, bloating, hematochezia or melena : Denies: flank pain, dysuria, urinary frequency or urinary urgency Skin/Breast: Denies: rash or pruritus PFSH ED PFSH: Medical History Allergic rhinitis Aortic valve stenosis Atherosclerotic heart disease CHF (congestive heart failure) Chronic eustachian tube dysfunction Deviated septum Diabetes Hx of cardiomyopathy Hypertension Nasal turbinate hypertrophy Nonalcoholic fatty liver disease Sensorineural hearing loss Valvular heart disease Surgical History Hx of CABG Family History Father CAD (coronary artery disease), Onset Age: 50 Diabetes Lung disease Grandmother Diabetes Family/Other Cancer Mother Dementia Denies family history of Clotting disorder Chronic kidney disease (CKD) Suicide Anesthesia complication Bleeding disorder Stroke Social History Smoking and tobacco status: never smoked Alcohol intake: never Physical Exam Const: COMMON NORMALS: no acute distress GENERAL APPEARANCE: cooperative a nd comfortable ORIENTATION/CONSCIOUSNESS: Yes awake, Yes oriented to person, Yes oriented to place and Yes oriented to time HENMT: COMMON NORMALS: normocephalic, atraumatic and hearing grossly normal bilaterally HEAD & SCALP: normocephalic and atraumatic Resp: COMMON NORMALS: normal respiratory effort, No retractions, No use of accessory muscles and clear to auscultation bilaterally AUSCULTATION: clear to auscultation bilaterally Cardio: COMMON NORMALS: regular rate, regular rhythm and No murmurs present (Cardio) RATE: regular rate RHYTHM: regular rhythm GI: COMMON NORMALS: Soft to palpation and No hepatosplenomegaly present A USCULTATION: Yes normoactive bowel sounds PALPATION: Yes Soft to palpation, No Tenderness to palpation present (GI), No Guarding due to palpation present (GI) and Yes No hepatosplenomegaly present Extremity: COMMON NORMALS: normal to inspection, capillary refill normal, no clubbing, cyanosis or edema, no calf tenderness and no pedal edema Neuro: SENSORIUM/ORIENTATION: Yes oriented to person, Yes oriented to place and Yes oriented to time Skin: COMMON NORMALS: no rashes or lesions noted GENERAL SKIN EXAM: no rashes or lesions noted Course Vital Signs: Vital signs: Vital Signs Temperature 97.6 F 01/15/22 08:46 Pulse Rate 86 01/15/22 10:26 Respiratory Rate 16 01/15/22 10:26 Blood Pressure 114/65 01/15/22 10:26 Pulse Oximetry 96 01/15/22 10:26 Oxygen Delivery Me thod 01/15/22 10:23 MDM - Extremity (Nontraumatic) Medical Decision Making No acute fractures no significant acute findings. Recommend that he follow-up with his primary care doctor regarding the mild elevation in alk phos and the joint pain. If he has any worsening problems return. Medical Records I reviewed the patient's medical records. Lab Data I reviewed the patient's lab results. : 01/15/22 09:30 01/15/22 09:30 Radiology Impressions Hip/Pelvis X-Ray 01/15/22 08:48 IMPRESSION: No fracture or dislocation of the right hip. Degenerative changes, as noted above. Knee X-Ray 01/15/22 08:48 IMPRESSION: Degenerative changes of the right knee, as noted above. Medium sized knee joint effusion. Chest X-Ray 01/15/22 08:53 IMPRESSION: No chest radiographic evidence of acute cardiopulmonary disease. Laboratory Results WBC 13.3 10^3/uL (4.0-10.0) H 01/15/22 09:30 RBC 4.27 10^6/uL (4.1-5.3) 01/15/22 09:30 Hgb 13.5 g/dL (11.7-16.6) 01/15/22 09:30 Hct 41.3 % (42.0-52.0) L 01/15/22 09:30 MCV 96.7 fl (80-94) H 01/15/22 09:30 MCH 31.6 pg (28.0-34.0) 01/15/22 09:30 MCHC 32.7 g/dL (30.0-36.0) 01/15/22 09:30 RDW 12.4 % (12.1-15.1) 01/15/22 09:30 Plt Count 208 10^3/cmm (130-400) 01/15/22 09:30 MPV 9.8 fL (7.4-10.4) 01/15/22 09:30 Neut % (Auto) 87.4 % 01/15/22 09:30 Lymph % (Auto) 6.4 % 01/15/22 09:30 [place] % (Auto) 4.8 % 01/15/22 09:30 Eos % (Auto) 0.3 % 01/15/22 09:30 Baso % (Auto) 0.5 % 01/15/22 09:30 Neut # (Auto) 11.66 10^3/uL (1.8-7.7) H 01/15/22 09:30 Lymph # (Auto) 0.9 10^3/uL (0.8-4.8) 01/15/22 09:30 [place] # (Auto) 0.6 10^3/uL (0.2-0.9) 01/15/22 09:30 Eos # (Auto) 0.0 10^3/uL (0.0-0.8) 01/15/22 09:30 Baso # (Auto) 0.1 10^3/uL (0.0-0.1) 01/15/22 09:30 Nucleated RBC % (auto) 0 % 01/15/22 09:30 Nucleated RBCs # 0.0 /100WBC 01/15/22 09:30 Sodium 136 mmol/L (136-145) 01/15/22 09:30 Potassium 4.1 mmol/L (3.5-5.1) 01/15/22 09:30 Chloride 97 mmol/L (98-107) L 01/15/22 09:30 Carbon Dioxide 28 mmol/L (22-29) 01/15/22 09:30 Anion Gap 15.1 (5-19) 01/15/22 09:30 BUN 18 mg/dL (8-23) 01/15/22 09:30 Creatinine 0.9 mg/dL (0.7-1.2) 01/15/22 09:30 GFR Calculation Not Reportable 01/15/22 09:30 Glucose 145 mg/dL (65-115) H 01/15/22 09:30 POC Glucose 141 mg/dL (70-110) H 01/15/22 09:31 Calculated Osmolality 286 mOsm/kg (285-295) 01/15/22 09:30 Calcium 9.6 mg/dL (8.5-10.5) 01/15/22 09:30 Total Bilirubin 0.9 mg/dL (0.15-1.2) 01/15/22 09:30 AST 34 U/L (0-40) 01/15/22 09:30 ALT 30 U/L (0-41) 01/15/22 09:30 Alkaline Phosphatase 172 U/L (40-130) H 01/15/22 09:30 Total Protein 7.1 g/dL (6.6-8.7) 01/15/22 09:30 Albumin 3.7 g/dL (3.5-5.2) 01/15/22 09:30 Globulin 3.4 g/dL (1.3-4.6) 01/15/22 09:30 Discharge Plan Discharge Patient Disposition: Home Clinical Impression: Hip pain, right, Hx of cardiomyopathy, Near syncope, Knee pain, right Condition: Stable Prescriptions: New diclofenac sodium 75 mg tablet,delayed release (DR/EC) 75 mg PO Q12H PRN (Reason: pain) Qty: 20 0RF No Action aspirin [Adult Aspirin Regimen] 81 mg tablet,delayed release (DR/EC) 81 mg PO DAILY metformin 500 mg tablet 250 mg PO BID multivitamin Tablet 1 tab PO DAILY Zyrtec 10 mg Tablet 10 mg PO DAILY Vitamin C 500 mg Tablet 500 mg PO DAILY echinacea 500 mg Capsule 500 mg PO DAILY Rx Instructions: administer with meals magnesium 250 mg Tablet 250 mg PO DAILY Vitamin D3 25 mcg (1,000 unit) Capsule 25 mcg PO DAILY Fish Oil 1,200 (144-216) mg Capsule 1 cap PO DAILY krill oil [id number] mg Capsule 1 cap PO DAILY Lipitor 20 mg tablet 20 mg PO DAILY losartan 25 mg tablet 12.5 mg PO BEDTIME Discharge Orders: Discharge ED (Routine); Ordered 01/15/22 Ordered By: Nick Kaur Referrals: Emigdio Garcia MD [Primary Care Provider] - Discharge Diet: Usual diet Discharge Activity: Increase activity as tolerated Patient Instructions: Opioid Safety, Pain Management Activity Restrictions/Additional Instructions: Evaluated for your right knee and hip pain this morning. X-rays were negative. Labs, EKG and labs had no significant abnormalities other than a slight increase in your alkaline phosphatase. This should be followed up with your primary care doctor at some point in the future. Use the diclofenac as needed for joint pain. 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
[2022-01-15 09:36] LABS: Glucose Point of Care 141 mg/dL (70-110)
[2022-01-15 09:41] LABS: Basophils # 0.1 10^3/uL (0.0-0.1); Basophils % 0.5 %; Eosinophils % 0.3 %; Hematocrit 41.3 % (42.0-52.0); Hemoglobin 13.5 g/dL (11.7-16.6); Lymphocytes # 0.9 10^3/uL (0.8-4.8); Lymphocytes % 6.4 %; Mean Corpuscular HGB Conc 32.7 g/dL (30.0-36.0); Mean Corpuscular Hemoglobin 31.6 pg (28.0-34.0); Mean Corpuscular Volume 96.7 fl (80-94); Mean Platelet Volume 9.8 fL (7.4-10.4); Monocytes # 0.6 10^3/uL (0.2-0.9); Monocytes % 4.8 %; Neutrophils # 11.66 10^3/uL (1.8-7.7); Neutrophils % 87.4 %; Nucleated Red Blood Cells % 0 %; Platelet Count 208 10^3/cmm (130-400); Red Blood Count 4.27 10^6/uL (4.1-5.3); Red Cell Distribution Width 12.4 % (12.1-15.1); White Blood Count 13.3 10^3/uL (4.0-10.0)
[2022-01-15 10:01] VITALS: BP 124/72; PULSE 88; RESP 20; O2SAT 92
[2022-01-15 10:06] LABS: Alanine Aminotransferase 30 U/L (0-41); Albumin Level 3.7 g/dL (3.5-5.2); Alkaline Phosphatase 172 U/L (40-130); Anion Gap 15.1 (5-19); Aspartate Amino Transferase 34 U/L (0-40); Blood Urea Nitrogen 18 mg/dL (8-23); Calcium 9.6 mg/dL (8.5-10.5); Carbon Dioxide 28 mmol/L (22-29); Chloride 97 mmol/L (98-107); Globulin 3.4 g/dL (1.3-4.6); Glucose 145 mg/dL (65-115); Osmolality Calculated 286 mOsm/kg (285-295); Potassium 4.1 mmol/L (3.5-5.1); Sodium 136 mmol/L (136-145); Total Bilirubin 0.9 mg/dL (0.15-1.2); Total Protein 7.1 g/dL (6.6-8.7)
[2022-01-15 10:23] VITALS: BP 114/65; PULSE 85; RESP 16; O2SAT 96
[2022-01-15 10:26] VITALS: BP 114/65; PULSE 86; RESP 16; O2SAT 96
== END 2022-01-15 10:28 | disposition home or self-care (01) ==
PROVIDERS: Emergency Provider Family Medicine; PCP Family Medicine
DX: M25.551 Pain in right hip (principal); M25.561 Pain in right knee; R55 Syncope and collapse; Z79.84 Long term (current) use of oral hypoglycemic drugs; Z79.82 Long term (current) use of aspirin; I11.0 Hypertensive heart disease with heart failure; I50.9 Heart failure, unspecified; E11.9 Type 2 diabetes mellitus without complications; Z95.1 Presence of aortocoronary bypass graft
CPT/HCPCS: 36416; 71045; 73502; 73562; 80053; 82962; 85025; 93005; 99285

== ENCOUNTER → 2022-04-09 09:40 | Outpatient (BNVA) | payer MEDICARE, SELFPAY | PROVIDERS: PCP Family Medicine; Visit Provider Internal Medicine Cardiovascular Disease | DX: I25.10 Atherosclerotic heart disease of native coronary artery without angina pectoris (principal); E78.5 Hyperlipidemia, unspecified; I42.9 Cardiomyopathy, unspecified; I11.0 Hypertensive heart disease with heart failure; I50.9 Heart failure, unspecified; Z95.1 Presence of aortocoronary bypass graft | CPT/HCPCS: 99214 ==

== ENCOUNTER 2022-04-25 08:49 | Emergency (ER) | payer MEDICARE, SELFPAY ==
[2022-04-25 08:50] VITALS: BP 105/80; PULSE 70; RESP 17; O2SAT 96; BMI 22.1
--- NOTE | 2022-04-25 08:54 | XRR_ITS ---
PROCEDURE INFORMATION: Exam: XR Chest Exam date and time: 04/25/2022 9:06 AM Age: 82 years old Clinical indication: Other: Weakness; Prior surgery; Surgery type: Heart TECHNIQUE: Imaging protocol: Radiologic exam of the chest. Views: 1 view. COMPARISON: CR XR chest 1V portable [id number] 01/15/2022 9:01 AM FINDINGS: Lungs: Unremarkable. No consolidation. Pleural spaces: Unremarkable. No pleural effusion. No pneumothorax. Heart/Mediastinum: Changes of prior CABG. Bones/joints: Unremarkable. XR/XR chest 1V portable [id number] IMPRESSION: No acute cardiopulmonary abnormality.
--- NOTE | 2022-04-25 08:54 | ECG_ITS ---
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 Measurements Intervals [place] Rate: 71 P: 54 ID: [id number] QRS: -38 QRSD: 141 T: 76 QT: 407 QTc: 443 Interpretive Statements SINUS RHYTHM LEFT AXIS DEVIATION [QRS AXIS < -30] RIGHT BUNDLE BRANCH BLOCK [120+ ms QRS DURATION, UPRIGHT V1, 40+ ms S IN I/aVL/V4/V5/V6] ANTEROSEPTAL MYOCARDIAL INFARCTION , OF INDETERMINATE AGE [40+ ms Q WAVE IN V1-V4] Compared to ECG 01/15/2022 09:24:13 Left ventricular hypertrophy no longer present T-wave abnormality no longer present Possible ischemia no longer present Myocardial infarct finding still present Electronically Signed On 04-26-2022 11:24:12 HEALTH CARE LAW SPECIALIST by Kishore Persaud M.D. [email or web address]
--- NOTE | 2022-04-25 08:54 | CTR_ITS ---
PROCEDURE INFORMATION: Exam: CT Head Without Contrast Exam date and time: 04/25/2022 9:11 AM Age: 82 years old Clinical indication: Dizziness and weakness, extremity; Bilateral TECHNIQUE: Imaging protocol: Computed tomography of the head without contrast. Radiation optimization: All CT scans at this facility use at least one of these dose optimization techniques: automated exposure control; mA and/or kV adjustment per patient size (includes targeted exams where dose is matched to clinical indication); or iterative reconstruction. Other protocol: This patient has received 0 known CTs and 0 known cardiac nuclear medicine studies in the 12 months prior to the current study. COMPARISON: CT head wo con* [id number] 02/08/2021 9:28 AM RADIATION DOSE METRICS: Total DLP (mGy-cm): 1213.19 FINDINGS: Brain: Patchy hypoattenuation in the periventricular and subcortical white matter, consistent with chronic small vessel ischemia. No CT evidence of acute ischemia. No acute hemorrhage. No mass effect. Cerebral ventricles: Global cerebral volume loss with ex vacuo dilatation of the ventricles. Paranasal sinuses: Visualized sinuses are unremarkable. No fluid levels. Mastoid air cells: Visualized mastoid air cells are well aerated. Bones/joints: Unremarkable. No acute fracture. Soft tissues: Unremarkable. CT/CT head wo con* [id number] IMPRESSION: No acute intracranial abnormality. Please note that MRI is more sensitive for early changes of acute ischemia.
--- NOTE | 2022-04-25 08:56 | ED_ITS ---
HPI - Syncope General: Chief Complaint: Syncope Stated Complaint: SYNCOPE; HYPOTENSION Time Seen by Provider: 04/25/22 08:50 Source: patient and EMS Mode of arrival: EMS Limitations: no limitations History of Present Illness: 82-year-old male states that he has been not feeling over the last 2 to 3 days states has had some generalized weakness he states it is a when he got up he felt like he was going to pass out did not have a syncopal episode but states he does have low blood pressure with standing. Denies any vomiting or diarrhea denies any headache does have some slight neck pain but he states it feels muscular it hurts worse to touch and with movement. He denies any chest pain or shortness of breath. Associated symptoms: Deny abdominal pain, headache(s) or nausea Review of Systems Const: Reports: fatigue and malaise Eyes: Denies: blurry vision or eye discomfort ENMT: Denies: throat pain or dental pain Card: Reports: pre-syncope Resp: Denies: dyspnea GI: Denies: abdominal pain, nausea, vomiting or diarrhea : Denies: dysuria Musc: Denies: neck pain or back pain Skin/Breast: Denies: rash Neuro: Denies: headache(s) Psych: Denies: depression Mat/Lymph: Denies: easy bruising All/Imm: Denies: urticaria PFSH ED PFSH: Medical History Allergic rhinitis Aortic valve stenosis Atherosclerotic heart disease CHF (congestive heart failure) Chronic eustachian tube dysfunction Deviated septum Diabetes Hx of cardiomyopathy Patient could not tolerate Entresto Hypertension Nasal turbinate hypertrophy Nonalcoholic fatty liver disease Sensorineural hearing loss Valvular heart disease Surgical History Hx of CABG Family History Father CAD (coronary artery disease), Onset Age: 50 Diabetes Lung disease Grandmother Diabetes Family/Other Cancer Mother Dementia Denies family history of Clotting disorder Chronic kidney disease (CKD) Suicide Anesthesia complication Bleeding disorder Stroke Social History Smoking and tobacco status: never smoked Alcohol intake: never Physical Exam Const: COMMON NORMALS: patient oriented x3 HENMT: COMMON NORMALS: normocephalic and atraumatic HEAD & SCALP: normocephalic and atraumatic Eye: COMMON NORMALS: Equal, round and reactive pupils present and EOMs intact bilaterally PUPIL: Yes Equal, round and reactive pupils present Neck/C-Spine: COMMON NORMALS: full ROM and supple Chest: COMMONS NORMALS: normal inspection of the chest and normal palpation of entire chest wall Resp: COMMON NORMALS: normal respiratory effort, No retractions, No use of accessory muscles and clear to auscultation bilaterally AUSCULTATION: clear to auscultation bilaterally Cardio: COMMON NORMALS: regular rate, regular rhythm and No murmurs present (Cardio) RATE: regular rate RHYTHM: regular rhythm GI: COMMON NORMALS: Normal to inspection, nondistended, normoactive bowel soun ds present, Soft to palpation, non-tender and no masses PALPATION: Yes Soft to palpation Extremity: COMMON NORMALS: normal to inspection and full ROM Neuro: COMMON NORMALS: patient oriented x3, moves all extremities and no focal motor deficits Psych: COMMON NORMALS: mental status grossly normal, Normal thought process present and cooperative THOUGHT PROCESS: Normal thought process present Skin: COMMON NORMALS: no rashes or lesions noted and no wounds GENERAL SKIN EXAM: no rashes or lesions noted Course Vital Signs: Vital signs: Vital Signs Pulse Rate 81 04/25/22 10:00 Respiratory Rate 18 04/25/22 10:00 Blood Pressure 139/72 04/25/22 10:00 Pulse Oximetry 94 04/25/22 10:00 Oxygen Delivery Me thod 04/25/22 08:50 MDM - Syncope Medical Decision Making Patient presents here with near syncopal event likely orthostatic hypotension he states he has been taking Zanaflex last 2 days he is got a neck strain I did inform him we will stop the Zanaflex as it can cause some hypotension we will start him on Robaxin he feels much improved after IV fluids blood work is all normal he is stable for discharge. Lab Data 04/25/22 08:56 04/25/22 08:56 Radiology Impressions Chest X-Ray 04/25/22 08:54 IMPRESSION: No acute cardiopulmonary abnormality. Head CT 04/25/22 08:54 IMPRESSION: No acute intracranial abnormality. Please note that MRI is more sensitive for early changes of acute ischemia. Laboratory Results WBC 14.0 10^3/uL (4.0-10.0) H 04/25/22 08:56 RBC 4.21 10^6/uL (4.1-5.3) 04/25/22 08:56 Hgb 12.5 g/dL (11.7-16.6) 04/25/22 08:56 Hct 40.2 % (42.0-52.0) L 04/25/22 08:56 MCV 95.5 fl (80-94) H 04/25/22 08:56 MCH 29.7 pg (28.0-34.0) 04/25/22 08:56 MCHC 31.1 g/dL (30.0-36.0) 04/25/22 08:56 RDW 13.3 % (12.1-15.1) 04/25/22 08:56 Plt Count 210 10^3/cmm (130-400) 04/25/22 08:56 MPV 10.0 fL (7.4-10.4) 04/25/22 08:56 Neut % (Auto) 80.7 % 04/25/22 08:56 Lymph % (Auto) 13.2 % 04/25/22 08:56 [place] % (Auto) 3.8 % 04/25/22 08:56 Eos % (Auto) 1.6 % 04/25/22 08:56 Baso % (Auto) 0.3 % 04/25/22 08:56 Neut # (Auto) 11.25 10^3/uL (1.8-7.7) H 04/25/22 08:56 Lymph # (Auto) 1.8 10^3/uL (0.8-4.8) 04/25/22 08:56 [place] # (Auto) 0.5 10^3/uL (0.2-0.9) 04/25/22 08:56 Eos # (Auto) 0.2 10^3/uL (0.0-0.8) 04/25/22 08:56 Baso # (Auto) 0.0 10^3/uL (0.0-0.1) 04/25/22 08:56 Nucleated RBC % (auto) 0 % 04/25/22 08:56 Nucleated RBCs # 0.0 /100WBC 04/25/22 08:56 PT 15.10 SECONDS (12.1-14.9) H 04/25/22 08:56 INR 1.16 (0.8-1.2) 04/25/22 08:56 Sodium 138 mmol/L (136-145) 04/25/22 08:56 Potassium 4.3 mmol/L (3.5-5.1) 04/25/22 08:56 Chloride 101 mmol/L (98-107) 04/25/22 08:56 Carbon Dioxide 28 mmol/L (22-29) 04/25/22 08:56 Anion Gap 13.3 (5-19) 04/25/22 08:56 BUN 19 mg/dL (8-23) 04/25/22 08:56 Creatinine 0.7 mg/dL (0.7-1.2) 04/25/22 08:56 GFR Calculation Not Reportable 04/25/22 08:56 Glucose 123 mg/dL (65-115) H 04/25/22 08:56 POC Glucose 85 mg/dL (70-110) 04/25/22 09:37 Calculated Osmolality 290 mOsm/kg (285-295) 04/25/22 08:56 Calcium 9.1 mg/dL (8.5-10.5) 04/25/22 08:56 Total Bilirubin 0.7 mg/dL (0.15-1.2) 04/25/22 08:56 AST 37 U/L (0-40) 04/25/22 08:56 ALT 33 U/L (0-41) 04/25/22 08:56 Alkaline Phosphatase 169 U/L (40-130) H 04/25/22 08:56 Troponin T Baseline 38 ng/L (0-15) H 04/25/22 08:56 Troponin T 120 Minute 35.61 ng/L (0-15) H 04/25/22 10:57 Delta Troponin T -2.39 ABS# (0-10) L 04/25/22 10:57 Total Protein 6.1 g/dL (6.6-8.7) L 04/25/22 08:56 Albumin 3.5 g/dL (3.5-5.2) 04/25/22 08:56 Globulin 2.6 g/dL (1.3-4.6) 04/25/22 08:56 Urine Color Straw (Yellow) 04/25/22 11:07 Urine Appearance Clear (CLEAR) 04/25/22 11:07 Urine pH 6.5 (5-7) 04/25/22 11:07 Ur Specific [place] 1.010 (1.005-1.030) 04/25/22 11:07 Urine Protein Neg (Negative) 04/25/22 11:07 Urine Glucose (UA) Norm (Normal) 04/25/22 11:07 Urine Ketones Negative (Negative) 04/25/22 11:07 Urine Blood Neg (Negative) 04/25/22 11:07 Urine Nitrate Negative (Negative) 04/25/22 11:07 Urine Bilirubin Neg (Negative) 04/25/22 11:07 Urine Urobilinogen Norm mg/dL (Negative) 04/25/22 11:07 Ur Leukocyte Esterase Negative (Negative) 04/25/22 11:07 EKG Data EKG 1: I personally reviewed and interpreted this EKG as follows: EKG interpretation date: 04/25/22 EKG interpretation time: 08:55 Interpretation: nsr hr [address] or t wave abnormalities qrs 141 qtc 429 Discharge Plan Discharge Patient Disposition: Home Clinical Impression: Near syncope Condition: Stable Prescriptions: New methocarbamol 750 mg tablet 750 mg PO Q6H PRN (Reason: spasms) Qty: 20 0RF No Action aspirin [Adult Aspirin Regimen] 81 mg tablet,delayed release (DR/EC) 81 mg PO DAILY metformin 500 mg tablet 250 mg PO BID Lipitor 20 mg tablet 20 mg PO DAILY Qty: 90 3RF furosemide [Lasix] 20 mg tablet 20 mg PO DAILY PRN (Reason: edema) Qty: 90 1RF multivitamin Tablet 1 tab PO DAILY Zyrtec 10 mg Tablet 10 mg PO DAILY Vitamin C 500 mg Tablet 500 mg PO DAILY echinacea 500 mg Capsule 500 mg PO DAILY Rx Instructions: administer with meals Vitamin D3 25 mcg (1,000 unit) Capsule 25 mcg PO DAILY Fish Oil 1,200 (144-216) mg Capsule 1 cap PO DAILY krill oil [phone] mg Capsule 1 cap PO DAILY losartan 25 mg tablet 12.5 mg PO BEDTIME Discharge Orders: Discharge ED (Routine); Ordered 04/25/22 Ordered By: Kary Pace Referrals: Emigdio Garcia MD [Primary Care Provider] - Discharge Diet: Advance as tolerated Discharge Activity: Resume usual activity Patient Instructions: Near Syncope (ED) Coding Level of Care Code ED Public Welfare Director for Betsyg Fwd Exam Comprehensive
[2022-04-25 09:10] VITALS: BP 117/65; PULSE 71; RESP 15; O2SAT 97
--- NOTE | 2022-04-25 09:10 | PC.NURSE ---
PT PLACED ON CONTINUOUS NIBP, SPO2, AND CM
[2022-04-25 09:13] LABS: Basophils % 0.3 %; Eosinophils # 0.2 10^3/uL (0.0-0.8); Eosinophils % 1.6 %; Hematocrit 40.2 % (42.0-52.0); Hemoglobin 12.5 g/dL (11.7-16.6); Lymphocytes # 1.8 10^3/uL (0.8-4.8); Lymphocytes % 13.2 %; Mean Corpuscular HGB Conc 31.1 g/dL (30.0-36.0); Mean Corpuscular Hemoglobin 29.7 pg (28.0-34.0); Mean Corpuscular Volume 95.5 fl (80-94); Monocytes # 0.5 10^3/uL (0.2-0.9); Monocytes % 3.8 %; Neutrophils # 11.25 10^3/uL (1.8-7.7); Neutrophils % 80.7 %; Nucleated Red Blood Cells % 0 %; Platelet Count 210 10^3/cmm (130-400); Red Blood Count 4.21 10^6/uL (4.1-5.3); Red Cell Distribution Width 13.3 % (12.1-15.1)
[2022-04-25] MEDS: sodium chloride 0.9% 1,000 ML 999 ML IV (09:32)
[2022-04-25 09:40] LABS: Glucose Point of Care 85 mg/dL (70-110)
[2022-04-25 09:40] LABS: INR 1.16 (0.8-1.2)
[2022-04-25 09:44] LABS: Alanine Aminotransferase 33 U/L (0-41); Albumin Level 3.5 g/dL (3.5-5.2); Alkaline Phosphatase 169 U/L (40-130); Anion Gap 13.3 (5-19); Aspartate Amino Transferase 37 U/L (0-40); Blood Urea Nitrogen 19 mg/dL (8-23); Calcium 9.1 mg/dL (8.5-10.5); Carbon Dioxide 28 mmol/L (22-29); Chloride 101 mmol/L (98-107); Globulin 2.6 g/dL (1.3-4.6); Glucose 123 mg/dL (65-115); Osmolality Calculated 290 mOsm/kg (285-295); Potassium 4.3 mmol/L (3.5-5.1); Sodium 138 mmol/L (136-145); Total Bilirubin 0.7 mg/dL (0.15-1.2); Total Protein 6.1 g/dL (6.6-8.7); Troponin(5th) Baseline 38 ng/L (0-15)
[2022-04-25 10:00] VITALS: BP 139/72; PULSE 81; RESP 18; O2SAT 94
--- NOTE | 2022-04-25 10:54 | ECG_ITS ---
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 Measurements Intervals [place] Rate: 79 P: 53 MO: 171 QRS: -46 QRSD: 148 T: 66 QT: 409 QTc: 470 Interpretive Statements SINUS RHYTHM RIGHT BUNDLE BRANCH BLOCK [120+ ms QRS DURATION, UPRIGHT V1, 40+ ms S IN I/aVL/V4/V5/V6] LEFT ANTERIOR FASCICULAR BLOCK [QRS AXIS <= -45, QR IN I, RS IN II] ANTEROSEPTAL MYOCARDIAL INFARCTION , OF INDETERMINATE AGE [40+ ms Q WAVE IN V1-V4] Compared to ECG 04/25/2022 08:55:09 Left anterior fascicular block now present Left-axis deviation no longer present Myocardial infarct finding still present Electronically Signed On 04-26-2022 11:34:20 DATA TYPIST by Kishore Persaud M.D. [id number]
[2022-04-25 11:25] LABS: Troponin 5 2HR 35.61 ng/L (0-15)
[2022-04-25 11:25] LABS: Add Urine Microscopic? NO; Charge for UA Resulting for Rev
[2022-04-25 11:29] LABS: Bilirubin Urine Neg (Negative); Blood Urine Neg (Negative); Glucose Urine UA Norm (Normal); Ketones Urine Negative (Negative); Leukocyte Esterase Urine Negative (Negative); Nitrate Urine Negative (Negative); Protein Urine Neg (Negative); Urine Appearance Clear (CLEAR); Urine Color Straw (Yellow); Urobilinogen Urine Norm (Negative); pH Urine 6.5 (5-7)
[2022-04-25 11:30] VITALS: BP 124/71; PULSE 79; RESP 15; O2SAT 97
[2022-04-25 11:37] LABS: Troponin 5 2HR Delta -2.39 ABS# (0-10)
[2022-04-25 12:03] VITALS: BP 124/71; PULSE 83; RESP 16; O2SAT 97
== END 2022-04-25 12:04 | disposition home or self-care (01) ==
PROVIDERS: Emergency Provider Emergency Medicine; PCP Family Medicine
DX: R55 Syncope and collapse (principal); Z79.82 Long term (current) use of aspirin; Z79.84 Long term (current) use of oral hypoglycemic drugs; I11.0 Hypertensive heart disease with heart failure; I50.9 Heart failure, unspecified; E11.9 Type 2 diabetes mellitus without complications; Z95.1 Presence of aortocoronary bypass graft
CPT/HCPCS: 36415; 36416; 70450; 71045; 80053; 81003; 82962; 84484; 85025; 85610; 93005; 96360; 99285; J7030

== ENCOUNTER → 2022-10-19 10:01 | Outpatient (BNVA) | payer MEDICARE, SELFPAY | PROVIDERS: PCP Family Medicine; Visit Provider Internal Medicine Cardiovascular Disease | DX: I11.0 Hypertensive heart disease with heart failure (principal); I50.9 Heart failure, unspecified; M79.89 Other specified soft tissue disorders; E78.5 Hyperlipidemia, unspecified; I25.10 Atherosclerotic heart disease of native coronary artery without angina pectoris; R06.02 Shortness of breath; Z95.1 Presence of aortocoronary bypass graft | CPT/HCPCS: 36415; 80048; 83880; 93005; 99214 ==

== ENCOUNTER → 2022-10-19 11:02 | Outpatient (BNVA) | payer MEDICARE, SELFPAY | PROVIDERS: PCP Family Medicine; Visit Provider Internal Medicine Cardiovascular Disease | DX: R07.9 Chest pain, unspecified (principal); R06.02 Shortness of breath | CPT/HCPCS: 93005 ==

== ENCOUNTER 2022-10-26 11:47 | Inpatient (IN) | payer MEDICARE, SELFPAY ==
[2022-10-26 12:17] VITALS: BP 109/76; PULSE 89; RESP 18; TEMP 36.8; O2SAT 98; BMI 24.3
--- NOTE | 2022-10-26 12:30 | XRR_ITS ---
PROCEDURE INFORMATION: Exam: XR Chest Exam date and time: 10/26/2022 12:35 PM Age: 82 years old Clinical indication: Cough and dyspnea; Prior surgery; Surgery date: 6+ months; Surgery type: Aortic valve; Patient HX: Dyspnea, cough, swelling in legs; Additional info: Dyspnea/cough TECHNIQUE: Imaging protocol: Radiologic exam of the chest. Views: 1 view. COMPARISON: CR XR chest 1V portable [id number] 04/25/2022 9:06 AM FINDINGS: Lungs: Unremarkable. No consolidation. Pleural spaces: Unremarkable. No pleural effusion. No pneumothorax. Heart/Mediastinum: There is an aortic valve prosthesis. No cardiomegaly. Bones/joints: Sternal sutures are again noted. No acute findings. XR/XR chest 1V portable [id number] IMPRESSION: No acute findings. No significant change.
--- NOTE | 2022-10-26 12:33 | ED_ITS ---
HPI - General Adult General: Chief complaint: General Medical Stated complaint: dr Malachi parker, fluid ret Time Seen by Provider: 10/26/22 12:29 Source: patient Mode of arrival: ambulatory History of Present Illness: 82-year-old male presents emergency room with bilateral lower extremity edema. He has a history of coronary artery disease he did have some pretty severe global hypokinesia 2 years ago it actually improved in July of last year he had a second echocardiogram his ejection fraction had improved to 49% where had be en down at 30 to 35% 6 months prior. He was recently started on furosemide he has had problems with blood pressure getting low he is edema extending into the pelvis patient had noticeably swollen genitals. Onset (ago): minute(s) Relieving factors: none Exacerbating factors: none Associated symptoms: Reports dyspnea and malaise; Deny chest pain, confusion, cough, diaphoresis, decreased appetite, fevers/chills, headache(s), nausea, rash, palpitations, seizures, short of breath, syncope, vomiting or weakness Review of Systems Const: Reports: fatigue and malaise; Denies: fever(s), chills or diaphoresis ENMT: Denies: throat pain, ear or mastoid pain, nasal discharge or nasal congestion Card: Reports: edema, swelling of feet/ankles, dyspnea on exertion and orthopnea; Denies: chest pain, palpitations or syncope Resp: Reports: dyspnea and non-productive cough GI: Denies: abdominal pain, nausea or vomiting : Denies: flank pain, dysuria, urinary frequency or urinary urgency Musc: Denies: neck pain or back pain Skin/Breast: Denies: rash or pruritus Neuro: Denies: headache(s) or confusion PFSH ED PFSH: Medical History Allergic rhinitis Aortic valve stenosis Atherosclerosis of coronary artery of [place] heart without angina pectoris Atherosclerotic heart disease CHF (congestive heart failure) Chronic eustachian tube dysfunction Deviated septum Diabetes Dyslipidemia Hx of cardiomyopathy Patient could not tolerate Entresto Hypertension Nasal turbinate hypertrophy Nonalcoholic fatty liver disease Sensorineural hearing loss Valvular heart disease Surgical History Hx of CABG Family History Father CAD (coronary artery disease), Onset Age: 50 Diabetes Lung disease Grandmother Diabetes Family/Other Cancer Mother Dementia Denies family history of Clotting disorder Chronic kidney disease (CKD) Suicide Anesthesia complication Bleeding disorder Stroke Social History Smoking and tobacco status: never smoked Alcohol intake: never Substance/Drug Use: never Physical Exam Const: GENERAL APPEARANCE: cooperative and comfortable ORIENTATION/CONSCIOUSNESS: Yes awake, Yes oriented to person, Yes oriented to place and Yes oriented to time HENMT: COMMON NORMALS: normocephalic, atraumatic and hearing grossly normal bilaterally HEAD & SCALP: normocephalic and atraumatic Resp: COMMON NORMALS: normal respiratory effort, No retractions, No use of accessory muscles and clear to auscultation bilaterally AUSCULTATION: clear to auscultation bilaterally Cardio: COMMON NORMALS: regular rate, regular rhythm and No murmurs present (Cardio) RATE: regular rate RHYTHM: regular rhythm GI: COMMON NORMALS: Soft to palpation and No hepatosplenomegaly present AUSCULTATION: Yes normoactive bowel sounds PALPATION: Yes Soft to palpation, No Tenderness to palpation present (GI), No Guarding due to palpation present (GI) and Yes No hepatosplenomegaly present Extremity: COMMON NORMALS: normal to inspection, capillary refill normal, no clubbing, cyanosis or edema, no calf tenderness and no pedal edema Neuro: SENSORIUM/ORIENTATION: Yes oriented to person, Yes oriented to place and Yes oriented to time Skin: COMMON NORMALS: no rashes or lesions noted GENERAL SKIN EXAM: no rashes or lesions noted Course Vital Signs: Vital signs: Vital Signs Temperature 98.2 F 10/29/22 20:41 Pulse Rate 89 10/29/22 20:41 Respiratory Rate 16 10/29/22 20:41 Blood Pressure 111/74 10/29/22 20:41 Pulse Oximetry 93 10/29/22 20:41 Oxygen Delivery Me thod Room Air 10/29/22 20:00 Oxygen Flow Rate 4 10/28/22 13:50 MDM - General Adult Medical Decision Making Acute decompensated congestive heart failure failure of outpatient treatment. Discussed with hospitalist will admit will need diuresis. Orders written Medical Records I reviewed the patient's medical records. Lab Data I reviewed the patient's lab results. 10/29/22 04:31 10/29/22 04:31 Radiology Impressions Chest X-Ray 10/26/22 12:30 IMPRESSION: No acute findings. No significant change. Chest CTA 10/27/22 10:00 IMPRESSION: 1. No pulmonary embolism. 2. Soft tissue mass in the RIGHT atrium. This may be flow artifact but mass such as thrombus or tumor needs to be excluded. Recommend ultrasound evaluation of the RIGHT upper quadrant with attention to the IVC and RIGHT atrium. 3. Abnormal liver. Very heterogeneous liver. Liver and is to be evaluated by ultrasound for possible hepatic vein or portal vein thrombosis and neoplasm. 4. Small bilateral pleural effusions, RIGHT greater than LEFT. Abdomen/Pelvis CT 10/28/22 11:13 IMPRESSION: 1. Markedly abnormal appearance to the liver and associated hepatic and portal veins. 2. Large amount of thrombus distending the IVC and extending into the RIGHT atrium. Extensive thrombus extending into the hepatic veins and the portal veins and in the proximal LEFT renal vein and just below the level of the renal veins. Thrombus extends from the liver into the portal vein therefore more suspicious for tumor thrombus. 3. Bulging contour of the caudate lobe with variable attenuation. Mass is not excluded on this appearance. This may be necrotic mass or edema causing the distention along with thrombus. 4. [place] versus tumor thrombus should be considered. An underlying neoplasm is not excluded within the liver. 5. Solid renal mass 1.5 cm superior RIGHT kidney suspicious for renal cell neoplasm. 6. Small amount of ascites throughout the abdomen and pelvis with diffuse soft tissue anasarca. 7. Small bilateral pleural effusions, RIGHT greater than LEFT. Laboratory Results WBC 13.3 10^3/uL (4.0-10.0) H 10/26/22 12:45 RBC 4.27 10^6/uL (4.1-5.3) 10/26/22 12:45 Hgb 12.8 g/dL (11.7-16.6) 10/26/22 12:45 Hct 39.2 % (42.0-52.0) L 10/26/22 12:45 MCV 91.8 fl (80-94) 10/26/22 12:45 MCH 30.0 pg (28.0-34.0) 10/26/22 12:45 MCHC 32.7 g/dL (30.0-36.0) 10/26/22 12:45 RDW 14.5 % (12.1-15.1) 10/26/22 12:45 Plt Count 151 10^3/cmm (130-400) 10/26/22 12:45 MPV 10.6 fL (7.4-10.4) H 10/26/22 12:45 Neut % (Auto) 86.9 % 10/26/22 12:45 Lymph % (Auto) 6.2 % 10/26/22 12:45 [place] % (Auto) 5.6 % 10/26/22 12:45 Eos % (Auto) 0.5 % 10/26/22 12:45 Baso % (Auto) 0.4 % 10/26/22 12:45 Neut # (Auto) 11.57 10^3/uL (1.8-7.7) H 10/26/22 12:45 Lymph # (Auto) 0.8 10^3/uL (0.8-4.8) 10/26/22 12:45 [place] # (Auto) 0.7 10^3/uL (0.2-0.9) 10/26/22 12:45 Eos # (Auto) 0.1 10^3/uL (0.0-0.8) 10/26/22 12:45 Baso # (Auto) 0.1 10^3/uL (0.0-0.1) 10/26/22 12:45 Nucleated RBC % (auto) 0 % 10/26/22 12:45 Nucleated RBCs # 0.0 /100WBC 10/26/22 12:45 D-Dimer 2.93 ug/mIFEU (0-0.59) H 10/26/22 12:45 Sodium 131 mmol/L (136-145) L 10/26/22 12:45 Potassium 3.5 mmol/L (3.5-5.1) 10/26/22 12:45 Chloride 91 mmol/L (98-107) L 10/26/22 12:45 Carbon Dioxide 27 mmol/L (22-29) 10/26/22 12:45 Anion Gap 16.5 (5-19) 10/26/22 12:45 BUN 33 mg/dL (8-23) H 10/26/22 12:45 Creatinine 1.1 mg/dL (0.7-1.2) 10/26/22 12:45 GFR Calculation Not Reportable 10/26/22 12:45 Glucose 163 mg/dL (65-115) H 10/26/22 12:45 Estimat Average Glucose 137 10/26/22 12:45 Hemoglobin A1c 6.4 % (4.0-6.0) H 10/26/22 12:45 Calculated Osmolality 283 mOsm/kg (285-295) L 10/26/22 12:45 Calcium 9.4 mg/dL (8.5-10.5) 10/26/22 12:45 Magnesium 1.6 mg/dL (1.7-2.3) L 10/26/22 12:45 Total Bilirubin 1.2 mg/dL (0.15-1.2) 10/26/22 12:45 AST 96 U/L (0-40) H 10/26/22 12:45 ALT 67 U/L (0-41) H 10/26/22 12:45 Alkaline Phosphatase 222 U/L (40-130) H 10/26/22 12:45 Creatine Kinase 26 U/L (39-308) L 10/26/22 12:45 Troponin T Baseline 40 ng/L (0-15) H 10/26/22 13:25 Troponin T 120 Minute 41.99 ng/L (0-15) H 10/26/22 15:19 Delta Troponin T 1.99 ABS# (0-10) 10/26/22 15:19 NT-Pro-B Natriuret Pep 525 pg/mL (0-450) H 10/26/22 12:45 Total Protein 6.0 g/dL (6.6-8.7) L 10/26/22 12:45 Albumin 3.3 g/dL (3.5-5.2) L 10/26/22 12:45 Globulin 2.7 g/dL (1.3-4.6) 10/26/22 12:45 Urine Color Yellow (Yellow) 10/26/22 14:41 Urine Appearance Clear (CLEAR) 10/26/22 14:41 Urine pH 5 (5-7) 10/26/22 14:41 Ur Specific [place] 1.005 (1.005-1.030) 10/26/22 14:41 Urine Protein Neg (Negative) 10/26/22 14:41 Urine Glucose (UA) Norm (Normal) 10/26/22 14:41 Urine Ketones Negative (Negative) 10/26/22 14:41 Urine Blood Neg (Negative) 10/26/22 14:41 Urine Nitrate Negative (Negative) 10/26/22 14:41 Urine Bilirubin Neg (Negative) 10/26/22 14:41 Urine Urobilinogen Norm mg/dL (Negative) 10/26/22 14:41 Ur Leukocyte Esterase Negative (Negative) 10/26/22 14:41 Discharge Plan Discharge Patient Disposition: Admitted As Inpatient Admit Provider: Ro Gamez Clinical Impression: CHF (congestive heart failure), Hx of cardiomyopathy, Hypertension Condition: Stable Coding Level of Care Code ED Music Historian for Peyton Yeager
[2022-10-26 12:51] VITALS: BP 119/89; PULSE 95; RESP 16; O2SAT 96
[2022-10-26 12:51] LABS: Basophils # 0.1 10^3/uL (0.0-0.1); Basophils % 0.4 %; Eosinophils # 0.1 10^3/uL (0.0-0.8); Eosinophils % 0.5 %; Hematocrit 39.2 % (42.0-52.0); Hemoglobin 12.8 g/dL (11.7-16.6); Lymphocytes # 0.8 10^3/uL (0.8-4.8); Lymphocytes % 6.2 %; Mean Corpuscular HGB Conc 32.7 g/dL (30.0-36.0); Mean Corpuscular Volume 91.8 fl (80-94); Mean Platelet Volume 10.6 fL (7.4-10.4); Monocytes # 0.7 10^3/uL (0.2-0.9); Monocytes % 5.6 %; Neutrophils # 11.57 10^3/uL (1.8-7.7); Neutrophils % 86.9 %; Nucleated Red Blood Cells % 0 %; Platelet Count 151 10^3/cmm (130-400); Red Blood Count 4.27 10^6/uL (4.1-5.3); Red Cell Distribution Width 14.5 % (12.1-15.1); White Blood Count 13.3 10^3/uL (4.0-10.0)
--- NOTE | 2022-10-26 12:59 | ECG_ITS ---
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 Measurements Intervals [place] Rate: 92 P: 24 [place]: 158 QRS: -40 QRSD: 154 T: 56 QT: 403 QTc: 501 Interpretive Statements SINUS RHYTHM LEFT AXIS DEVIATION [QRS AXIS < -30] RIGHT BUNDLE BRANCH BLOCK [120+ ms QRS DURATION, UPRIGHT V1, 40+ ms S IN I/aVL/V4/V5/V6] ANTEROSEPTAL MYOCARDIAL INFARCTION , OF INDETERMINATE AGE [40+ ms Q WAVE IN V1-V4] Compared to ECG 10/19/2022 11:11:53 No significant changes Electronically Signed On 10-26-2022 16:11:44 CDT by Kishore Persaud M.D. [id number]
[2022-10-26 13:20] VITALS: BP 109/77; PULSE 96; RESP 16; O2SAT 91
[2022-10-26 13:34] LABS: Alanine Aminotransferase 67 U/L (0-41); Albumin Level 3.3 g/dL (3.5-5.2); Alkaline Phosphatase 222 U/L (40-130); Anion Gap 16.5 (5-19); Aspartate Amino Transferase 96 U/L (0-40); Blood Urea Nitrogen 33 mg/dL (8-23); Calcium 9.4 mg/dL (8.5-10.5); Carbon Dioxide 27 mmol/L (22-29); Chloride 91 mmol/L (98-107); Creatine Phosphokinase 26 U/L (39-308); Globulin 2.7 g/dL (1.3-4.6); Glucose 163 mg/dL (65-115); Magnesium 1.6 mg/dL (1.7-2.3); NT Pro B Type Natriuretic Pept 525 pg/mL (0-450); Osmolality Calculated 283 mOsm/kg (285-295); Potassium 3.5 mmol/L (3.5-5.1); Sodium 131 mmol/L (136-145); Total Bilirubin 1.2 mg/dL (0.15-1.2)
[2022-10-26] MEDS: FUROsemide 10 mg/mL SDV 2mL 20 MG IVP (13:34)
[2022-10-26 13:38] VITALS: BP 120/83; PULSE 97; RESP 16; O2SAT 96
[2022-10-26 14:13] LABS: Troponin(5th) Baseline 40 ng/L (0-15)
[2022-10-26 14:47] LABS: Add Urine Microscopic? NO; Charge for UA Resulting for Rev
[2022-10-26 14:49] LABS: Bilirubin Urine Neg (Negative); Blood Urine Neg (Negative); Glucose Urine UA Norm (Normal); Ketones Urine Negative (Negative); Leukocyte Esterase Urine Negative (Negative); Nitrate Urine Negative (Negative); Protein Urine Neg (Negative); Specific Gravity, Urine 1.005 (1.005-1.030); Urine Appearance Clear (CLEAR); Urine Color Yellow (Yellow); Urobilinogen Urine Norm (Negative); pH Urine 5 (5-7)
--- NOTE | 2022-10-26 15:10 | ECG_ITS ---
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 Measurements Intervals [place] Rate: 108 P: 45 [place]: 158 QRS: -51 QRSD: 146 T: 46 QT: 378 QTc: 507 Interpretive Statements SINUS TACHYCARDIA WITH OCCASIONAL VENTRICULAR PREMATURE COMPLEXES RIGHT BUNDLE BRANCH BLOCK [120+ ms QRS DURATION, UPRIGHT V1, 40+ ms S IN I/aVL/V4/V5/V6] LEFT ANTERIOR FASCICULAR BLOCK [QRS AXIS <= -45, QR IN I, RS IN II] ANTEROSEPTAL MYOCARDIAL INFARCTION , OF INDETERMINATE AGE [40+ ms Q WAVE IN V1-V4] Compared to ECG 10/26/2022 13:05:45 Ventricular premature complex(es) now present Left anterior fascicular block now present Sinus rhythm no longer present Left-axis deviation no longer present Myocardial infarct finding still present Electronically Signed On 10-26-2022 16:14:34 CDT by Kishore Persaud M.D. [id number]
--- NOTE | 2022-10-26 15:42 | PM.HP ---
Providers/Chief Complaint Primary Care Provider: Emigdio Garcia MD Chief Complaint: dr Ly sent, fluid ret History of Present Illness Elliott Sumner is a 82 year old male with history of systolic CHF present to the hospital for worsening of orthopnea PND shortness of breath and fluid overload. Patient is stating that his blood pressure dropped with use of torsemide. Dr. Ly sent him for further evaluation in the ER he was given Lasix, echo was requested Chest pain-free Troponin trending down EKG without infarct or ischemic changes D-dimer requested Review of Systems Narrative: No chest pain Positive for fatigue and lethargy Fluid overload Weight gain positive for shortness of breath Troponin PND No abdominal pain No headache No skin rash Back pain positive Medications/Allergies Home Medications Medication Instructions Recorded Confirmed Last Taken Type aspirin 81 mg tablet,delayed 81 mg PO DAILY 04/03/20 10/26/22 10/25/22 History release (Adult Aspirin Regimen) metformin 500 mg tablet 250 mg PO BID 04/03/20 10/26/22 10/25/22 History ascorbic acid (vitamin C) 500 mg 500 mg PO DAILY 01/15/22 10/26/22 10/25/22 History tablet (Vitamin C) cetirizine 10 mg tablet (Zyrtec) 10 mg PO DAILY 01/15/22 10/26/22 10/25/22 History cholecalciferol (vitamin D3) 25 25 mcg PO DAILY 01/15/22 10/26/22 10/25/22 History mcg (1,000 unit) capsule (Vitamin D3) echinacea 500 mg capsule 500 mg PO DAILY 01/15/22 10/26/22 10/25/22 History krill 1,000 mg-omega-3 170 mg-dha 1 cap PO DAILY 01/15/22 10/26/22 10/25/22 History 50 mg-epa 80 lv-byjord-cpeov capsule (krill oil) multivitamin 1 tab PO DAILY 01/15/22 10/26/22 10/25/22 History methocarbamol 750 mg tablet 750 mg PO Q6H PRN spasms #20 tabs 04/25/22 10/26/22 Unknown Rx potassium chloride 8 mEq 8 meq PO DAILY 30 days #30 caps 10/19/22 10/26/22 10/26/22 Rx capsule,extended release torsemide 20 mg tablet 20 mg PO DAILY #10 tabs 10/19/22 10/26/22 10/26/22 Rx Allergies Allergy/AdvReac Type Severity Reaction Status Date / Time sacubitril [From Entresto] Allergy Intermediate rash Verified 10/19/22 08:08 valsartan [From Entresto] Allergy Intermediate rash Verified 10/19/22 08:08 lisinopril AdvReac Mild Low BP Verified 10/19/22 08:08 PFSH Acute PFSH: Medical History Allergic rhinitis Aortic valve stenosis Atherosclerotic heart disease CHF (congestive heart failure) Chronic eustachian tube dysfunction Deviated septum Diabetes Hx of cardiomyopathy Patient could not tolerate Entresto Hypertension Nasal turbinate hypertrophy Nonalcoholic fatty liver disease Sensorineural hearing loss Valvular heart disease Surgical History Hx of CABG Family History Father CAD (coronary artery disease), Onset Age: 50 Diabetes Lung disease Grandmother Diabetes Family/Other Cancer Mother Dementia Denies family history of Clotting disorder Chronic kidney disease (CKD) Suicide Anesthesia complication Bleeding disorder Stroke Social History Smoking and tobacco status: never smoked Alcohol intake: never Substance/Drug Use: never Vitals/I&O/Wt Last Vital Signs Temp 98.2 F 10/26/22 12:17 Pulse 97 10/26/22 13:38 Resp 16 10/26/22 13:38 BP 120/83 10/26/22 13:38 Pulse Ox 96 10/26/22 13:38 O2 Del Method Room Air 10/26/22 13:20 Weight last 48 hrs Weight 68.492 kg Physical Exam Narrative: Signs of fluid overload Currently on room air CHF exacerbation Lower extremity edema S1, S2 variable Abdomen soft Nonfocal neuro exam GCS 15 Pleasant and cooperative Pale complexion Data 10/27/22 04:38 10/27/22 04:38 A&P Assessment and plan (1) Tachycardia: (2) CHF (congestive heart failure): (3) Leg swelling: (4) Hypertension: Qualifiers: Hypertension type: essential hypertension Qualified Code(s): I10 - Essential (primary) hypertension (5) Diabetes: Qualifiers: Diabetes mellitus type: type 1 Diabetes mellitus complication status: without complication Qualified Code(s): E10.9 - Type 1 diabetes mellitus without complications Plan Acute CHF exacerbation Previous echo showed reduced EF Reduced EF ejection fraction heart exacerbation No active chest pain Troponin trending down Requested D-dimer Admit to MedSurg Insulin sliding scale for diabetes Cardiac consistent carb diet Full code Abnormal transaminases likely related to congestive hepatopathy Attestations Medical Necessity Statement*: More than 2 midnights anticipated for management of heart failure, Diagnoses Tachycardia R00.0 CHF (congestive heart failure) I50.9 Leg swelling M79.89 Hypertension I10 Hypertension type: essential hypertension Diabetes E10.9 Diabetes mellitus type: type 1 Diabetes mellitus complication status: without complication
[2022-10-26 15:56] LABS: Troponin 5 2HR 41.99 ng/L (0-15)
[2022-10-26 15:58] LABS: Troponin 5 2HR Delta 1.99 ABS# (0-10)
[2022-10-26] MEDS: potassium chloride ER 20 mEq Tablet 40 MEQ PO (16:04)
[2022-10-26 16:09] VITALS: BP 103/80; PULSE 99; RESP 16; O2SAT 97
[2022-10-26 16:10] LABS: D Dimer 2.93 ug/mIFEU (0-0.59)
--- NOTE | 2022-10-26 18:16 | USCV_ITS ---
Elliott Sumner Age: 82 Gender: M : 1940 Exam Date: 10/26/2022 20:03 Ordering Phys: Ro Gamez MD Technologist: BOO Exam Location: [facility] [place] Indication: BLE edema, history of CAD s/p CABG and Aortic Valve Replacement. Patient is a poor historian and cannot recall dates BP: 103 / 80 HR: 98 Rhythm: Atrial fibrillation Technical Quality: Adequate MEASUREMENTS (Male / Female) Normal Values 2D ECHO LVOT Diameter 1.9 cm LV Ejection Fraction MOD 2C 51.6 % LV Ejection Fraction 2C AL 52.2 % LA Diameter 2.7 cm LA Width 3.2 cm LA Height 4.5 cm RA Width 4.3 cm RA Height 4.2 cm Aorta at Sinotubular Diameter 2.6 cm IVC Diameter 1.6 cm M-MODE Aortic Annulus Diameter 2.5 cm LA Ao Ratio MM 0.9 DOPPLER AV Peak Velocity 102.0 cm/s LVOT Peak Velocity 78.0 cm/s AV Area Cont Eq vti 2.3 cm squared AV Area Cont Eq pk 2.1 cm squared MV Area PHT 5.9 cm squared MV E' Velocity 77.0 cm/s Mitral E to MV E' Ratio 24.9 Mitral E to LV E' Lateral Ratio 21.3 Mitral E to LV E' Septal Ratio 30.0 TV Peak E Velocity 43.0 cm/s PV Peak Velocity 90.0 cm/s RV Acceleration Time 0.1 s RV Ejection Time 0.3 s RV AcT/ET 0.3 FINDINGS Left Ventricle The mid and apical septum and the anteroseptal segments are found to be almost akinetic and thinned out. Severe hypokinesia of the apical inferior wall segment. LV ejection fraction of around 50% Right Ventricle Normal right ventricular size and systolic function. Right Atrium The right atrium is normal in size. Left Atrium The left atrium is normal in size. Mitral Valve Thickened mitral valve. Mild mitral annular calcification. Aortic Valve Bioprosthetic valve the aortic position appears to be well- seated Tricuspid Valve No gross abnormalities noted Pulmonic Valve Not visualized well Pericardium Normal pericardium without effusion. Aorta Normal ascending aorta dimension. IVC The inferior vena cava appears normal. CONCLUSIONS The mid and apical septum and the anteroseptal segments are found to be almost akinetic and thinned out. Severe hypokinesia of the apical inferior wall segment. LV ejection fraction of around 50%. Thickened mitral valve. Mild mitral annular calcification. There is no pericardial effusion. There are no intracardiac masses. The bioprosthetic valve the aortic position appears to be well- seated. Gradient across the aortic valve appears to be within normal limit. Compared to the study from 08/15/2021, the aortic valve appears to be replaced Addendum: Revised copy of the study done on 10/26/2022 There appears to be an echodense mass(3X2 cm)close to the lateral wall of the right atrium with no mobility, most likely representing an extracardiac mass. May consider SD to better evaluate . Dr Khoi Ly MD FACC (Electronically Signed) Final Date: 27 October 2022 10:15 Amended: 27 October 2022 18:43 C
[2022-10-26 18:34] LABS: Glucose Point of Care 141 mg/dL (70-110)
[2022-10-26] MEDS: magnesium oxide 400 mg tablet PO (18:49)
[2022-10-26] MEDS: insulin lispro 100 unit/1 mL SUBCUT (18:49)
[2022-10-26 19:58] LABS: Troponin 5 6HR 39.09 ng/L (0-15)
[2022-10-26 20:00] VITALS: BP 107/71; PULSE 104; RESP 16; TEMP 36.8; O2SAT 95
[2022-10-26 20:00] LABS: Troponin 5 6HR Delta -0.91 ng/L (0-12)
[2022-10-26 20:31] LABS: Estmated Average Glucose 137; Hemoglobin A1C 6.4 % (4.0-6.0)
[2022-10-26 20:44] LABS: Glucose Point of Care 192 mg/dL (70-110)
[2022-10-26] MEDS: FUROsemide 10 mg/mL SDV 10mL 60 MG IVP (20:53)
[2022-10-27] VITALS (7 sets, daily range): BP systolic 110–121; BP diastolic 72–87; PULSE 85–106; RESP 15–18; TEMP 36.5–37; O2SAT 94–98
[2022-10-27 05:04] LABS: Basophils # 0.1 10^3/uL (0.0-0.1); Basophils % 0.4 %; Eosinophils # 0.1 10^3/uL (0.0-0.8); Eosinophils % 0.4 %; Hematocrit 38.9 % (42.0-52.0); Hemoglobin 12.7 g/dL (11.7-16.6); Lymphocytes # 0.9 10^3/uL (0.8-4.8); Lymphocytes % 6.2 %; Mean Corpuscular HGB Conc 32.6 g/dL (30.0-36.0); Mean Corpuscular Hemoglobin 29.7 pg (28.0-34.0); Mean Corpuscular Volume 91.1 fl (80-94); Mean Platelet Volume 10.4 fL (7.4-10.4); Monocytes # 0.6 10^3/uL (0.2-0.9); Monocytes % 4.4 %; Neutrophils # 12.25 10^3/uL (1.8-7.7); Neutrophils % 88.1 %; Nucleated Red Blood Cells % 0 %; Platelet Count 163 10^3/cmm (130-400); Red Blood Count 4.27 10^6/uL (4.1-5.3); Red Cell Distribution Width 14.5 % (12.1-15.1); White Blood Count 13.9 10^3/uL (4.0-10.0)
[2022-10-27 05:22] LABS: Anion Gap 16.5 (5-19); Blood Urea Nitrogen 34 mg/dL (8-23); Calcium 9.2 mg/dL (8.5-10.5); Carbon Dioxide 30 mmol/L (22-29); Chloride 91 mmol/L (98-107); Glucose 131 mg/dL (65-115); Magnesium 1.6 mg/dL (1.7-2.3); Osmolality Calculated 287 mOsm/kg (285-295); Phosphorus 3.3 mg/dL (2.5-4.5); Potassium 3.5 mmol/L (3.5-5.1); Sodium 134 mmol/L (136-145)
[2022-10-27 06:50] LABS: Glucose Point of Care 126 mg/dL (70-110)
--- NOTE | 2022-10-27 08:44 | USCV_ITS ---
Burak Elliott Age: 82 Gender: M : 1940 Exam Date: 10/27/2022 10:09 Ordering Phys: Ro Gamez MD Technologist: MARIUSZ Exam Location: [facility] – [place] Indication: BLE SWELLING HISTORY: Lower extremity swelling. PROCEDURES: Venous duplex imaging was performed in bilateral lower extremities. The following venous structures were evaluated: common femoral vein, profunda vein, proximal portion of the greater saphenous vein, superficial femoral vein, and the popliteal vein. In addition, the posterior tibial and peroneal trunk were evaluated. Serial compression, augmentation maneuvers, and spectral Doppler flow evaluation were performed. FINDINGS: Normal 2-D Doppler and augmentation and compressibility throughout the lower extremity venous structures. Additional imaging through the proximal calf veins also reveals no thrombus. Limited evaluation of the greater saphenous vein is patent with no thrombus. Bilateral subcutaneous edema. CONCLUSIONS No DVT bilateral lower extremities. Dr. Charlene Phan DO (Electronically Signed) Final Date: 27 October 2022 11:44 S
[2022-10-27] MEDS: aspirin 81 mg EC Tablet PO (09:06)
[2022-10-27] MEDS: magnesium oxide 400 mg tablet PO ×2 (09:06→17:41)
[2022-10-27] MEDS: potassium chloride ER 20 mEq Tablet 40 MEQ PO (09:07)
[2022-10-27] MEDS: sennosides-docusate Tablet 1 TAB PO (09:07)
--- NOTE | 2022-10-27 10:00 | CT_ITS ---
WS: [id number] CT CHEST ANGIOGRAPHY WITH REFORMATS HISTORY: chf TECHNIQUE: Contiguous axial images are obtained through the chest during arterial injection of intrav enous contrast. Images are reconstructed to evaluate the pulmonary arteries. MIP imaging also reviewe d. All CT scans at [facility] use at least one of these dose optimization techniques: automat ed exposure control; mA and/or kV adjustment per patient size (includes targeted exams where dose is matched to clinical indication); or iterative reconstruction. CONTRAST: Omnipaque 350; 100 mL IV. DLP: 345.31 mGy.cm COMPARISON: None available. Good opacification of the pulmonary arteries. No central or lobar filling defects. Portions of the se gmental branches are also normal. Normal size thoracic aorta with atherosclerotic plaque. Heart is normal size. There is a soft tissue filling defect involving the RIGHT atrium and contiguous with the IVC. This may be a flow related artifact or thrombus extending into the IVC, tumor should b e considered. There is also an abnormal appearance of the liver. Coarse echotexture throughout the li shellie with variable attenuation centrally. Most significant changes in the central jorge hepatis and ca udate lobe. Liver needs to be evaluated for possible mass or hepatic/portal vein thrombosis. There is cholelithiasis. Small bilateral pleural effusions, RIGHT greater than LEFT. Chronic centrilobular emphysema. Nonspeci fic 5 mm nodule RIGHT lower lobe. Soft tissue edema and anasarca. Incompletely visualized LEFT renal cyst at 3.8 cm. Prior CABG. Increase in thoracic kyphosis. Advanced degenerative changes within the thoracic spine. CT/CT angio chest PE protcl [id number] IMPRESSION: 1. No pulmonary embolism. 2. Soft tissue mass in the RIGHT atrium. This may be flow artifact but mass mcnulty ch as thrombus or tumor needs to be excluded. Recommend ultrasound evaluation o f the RIGHT upper quadrant with attention to the IVC and RIGHT atrium. 3. Abnormal liver. Very heterogeneous liver. Liver and is to be evaluated by u ltrasound for possible hepatic vein or portal vein thrombosis and neoplasm. 4. Small bilateral pleural effusions, RIGHT greater than LEFT.
[2022-10-27] MEDS: iohexol 350 mg/mL 500 mL Btl (per mL) IV (10:38)
[2022-10-27 10:52] LABS: Glucose Point of Care 185 mg/dL (70-110)
[2022-10-27] MEDS: FUROsemide 10 mg/mL SDV 10mL 60 MG IVP (11:12)
--- NOTE | 2022-10-27 11:32 | P.PN_ITS ---
Subjective Subjective: Increase diuretics No significant overnight worsening Currently on room air Tachycardia high D-dimer requested venous Doppler CTA chest Vitals/I&O/Wt Last Vital Signs Temp 98.1 F 10/27/22 08:00 Pulse 106 H 10/27/22 08:00 Resp 16 10/27/22 08:00 BP 110/72 10/27/22 08:00 Pulse Ox 95 10/27/22 08:00 O2 Del Method Room Air 10/27/22 08:00 10/26/22 10/27/22 10/27/22 22:59 06:59 14:59 Intake Total 120 / 120 240 / 240 Output Total 1500 / 1500 Balance -1380 / -1380 240 / 240 Weight last 48 hrs Weight 68.492 kg Physical Exam Narrative: Fluid overload Currently on room air Tachycardia S1, S2 GCS 15 Nonfocal neuro exam Pale complexion Abdomen soft Pleasant and cooperative Data 10/27/22 04:38 10/27/22 04:38 A&P Assessment and plan (1) Leg swelling: (2) CHF (congestive heart failure): (3) Dyslipidemia: (4) Hx of cardiomyopathy: (5) Diabetes: Qualifiers: Diabetes mellitus type: type 1 Diabetes mellitus complication status: without complication Qualified Code(s): E10.9 - Type 1 diabetes mellitus without complications (6) Tachycardia: Plan Hypomagnesemia: Repleted Acute D CHF exacerbation: Echo report pending Increase the dose of diuretics High D-dimer sinus tachycardia rule out PE requested venous Doppler and CTA chest Patient lives with his at home Will request PT evaluation before discharge Full code Cardiac diet Attestations Medical Necessity Statement*: Continue medical management Diagnoses Leg swelling M79.89 CHF (congestive heart failure) I50.9 Dyslipidemia E78.5 Hx of cardiomyopathy Z86.79 Diabetes E10.9 Diabetes mellitus type: type 1 Diabetes mellitus complication status: without complication Tachycardia R00.0
--- NOTE | 2022-10-27 11:37 | ECG_ITS ---
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 Interpretive Statements NAME OF STUDY: LEXISCAN SESTAMIBI STRESS TEST INDICATION: Unstable Angina PROCEDURE: At the baseline, the EKG revealed sinus tachycardia with a rate of 104 bpm. Right bundle branch block pattern. Nonspecific T wave changes. The baseline heart was 105 bpm with a blood pressue of 103/71 mm of Hg Lexiscan was infused over a period of 20 seconds. A total of 0.4 milligrams of Lexiscan was infused. The stress phase was continued for a total of 5 minutes. Heart rate at the end of the stress phase was 108 bpm with a blood pressure 85/58 mm of Hg. The EKG at the peak infusion revealed no significant changes occasional PVCs were noted on the monitor. Sestamibi was injected 20 seconds after the Lexiscan infusion. Heart rate at the end of the recovery phase was 104 bpm with a blood pressure of 100/61 mm of Hg. CONCLUSION: 1. No significant EKG changes with the LexiScan infusion 2. No LexiScan induced chest pain .Few PVCs were noted on the monitor with the Lexiscan infusion 3. Normal blood pressure and heart rate response 4. Sestamibi/sestamibi perfusion scan pending; see separate report. Electronically Signed On 11-06-2022 10:28:31 CDT by Khoi Ly M.D. [email or web address]
[2022-10-27] MEDS: insulin lispro 100 unit/1 mL SUBCUT ×2 (11:55→17:41)
[2022-10-27] MEDS: bumetanide 0.25 mg/mL SDV 4 mL 1 MG IVP ×2 (14:18→21:20)
[2022-10-27 17:01] LABS: Glucose Point of Care 178 mg/dL (70-110)
--- NOTE | 2022-10-27 18:16 | USCV_ITS ---
Elliott Sumner Age: 82 Gender: M : 1940 Exam Date: 10/27/2022 19:51 Ordering Phys: Ro Gamez MD Technologist: BOO Exam Location: [facility] [place] Indication: assess for portal or hepatic vein thrombosis Findings 1) The MPV is hepatopetal. Likewise, the LPV and RPV. No evidence of portal vein thrombosis. 2) The MHV is antegrade in the direction of the IVC. Likewise, the RHV and LHV. No evidence of hepatic veins thrombosis. 3) The IVC is well visualized mid to distal abdomen. It compresses easily and shows normal Doppler flow, including good augmentation. No evidence of IVC thrombosis. Conclusions No thrombus is noted in the portal or hepatic veins. Negative IVC. Dr. Charlene Phan DO (Electronically Signed) Final Date: 28 October 2022 06:07 S
[2022-10-27 20:48] LABS: Glucose Point of Care 125 mg/dL (70-110)
[2022-10-28] VITALS (10 sets, daily range): BP systolic 99–122; BP diastolic 62–82; PULSE 60–111; RESP 15–18; TEMP 36.3–37.1; O2SAT 92–98
[2022-10-28 05:30] LABS: Basophils # 0.1 10^3/uL (0.0-0.1); Basophils % 0.3 %; Eosinophils % 0.1 %; Hematocrit 40.2 % (42.0-52.0); Hemoglobin 13.2 g/dL (11.7-16.6); Lymphocytes # 1.2 10^3/uL (0.8-4.8); Lymphocytes % 6.5 %; Mean Corpuscular HGB Conc 32.8 g/dL (30.0-36.0); Mean Corpuscular Hemoglobin 29.7 pg (28.0-34.0); Mean Corpuscular Volume 90.5 fl (80-94); Mean Platelet Volume 10.6 fL (7.4-10.4); Monocytes # 0.9 10^3/uL (0.2-0.9); Neutrophils # 15.45 10^3/uL (1.8-7.7); Neutrophils % 87.4 %; Nucleated Red Blood Cells % 0 %; Platelet Count 188 10^3/cmm (130-400); Red Blood Count 4.44 10^6/uL (4.1-5.3); Red Cell Distribution Width 14.6 % (12.1-15.1); White Blood Count 17.7 10^3/uL (4.0-10.0)
[2022-10-28 05:52] LABS: Anion Gap 16.6 (5-19); Blood Urea Nitrogen 33 mg/dL (8-23); Calcium 9.4 mg/dL (8.5-10.5); Carbon Dioxide 30 mmol/L (22-29); Chloride 91 mmol/L (98-107); Glucose 139 mg/dL (65-115); Osmolality Calculated 288 mOsm/kg (285-295); Potassium 3.6 mmol/L (3.5-5.1); Sodium 134 mmol/L (136-145)
[2022-10-28 06:39] LABS: Glucose Point of Care 156 mg/dL (70-110)
[2022-10-28] MEDS: regadenoson 0.4 Mg/5 ml Syringe IVP (07:46)
--- NOTE | 2022-10-28 07:53 | USCV_ITS ---
Elliott Sumner Age: 82 Gender: M : 1940 Exam Date: 10/28/2022 13:06 Ordering Phys: Khoi Ly MD ([email or web address]) Technologist: MARIUSZ [place] [facility] [place] Indication: POSSIBLE RIGHT ARRIAL THROMBUS BP: 112 / 82 HR: 96 Rhythm: Sinus Technical Quality: Adequate MEASUREMENTS (Male / Female) Normal Values Medications IV propofol, administered by anesthesia service. Please refer to anesthesia note for details Complications None Proc. Components The patient was brought to the SD examination room in a fasting state after obtaining an informed consent. The SD probe was passed into the posterior pharynx , mid-esophagus, distal esophagus,. 30 was not advanced to the stomach because of technical difficulties FINDINGS Left Ventricle Mildly dilated LV cavity with a midly diminished ejection fraction. Moderate hypokinesia of the septum was noted Right Ventricle Patient with normal size and ejection fraction Right Atrium Somewhat heterogenous circumscribed irregular mass measuring 1.9 x 2.6 cm extending from the inferior vena cava into the tricuspid inflow was noted. Left Atrium The saline contrast injection revealed small patent foramen ovale causing right to left.-Few bubbles were found to be causing into the left atrium LA Appendage No masses or vegetations IA Septum Small patent foramen ovale based on the saline contrast injection Mitral Valve Trace of mitral regurgitation was noted Aortic Valve The bioprosthetic valve the aortic position appears to be well- seated. No masses or vegetations noted on the valve Tricuspid Valve No gross abnormalities noted . Pulmonic Valve No gross abnormalities noted Pericardium No pericardial effusion Aorta The aortic root appeared to be of normal size CONCLUSIONS Somewhat heterogenous circumscribed irregular mass measuring 1.9 x 2.6 cm extending from the inferior vena cava into the tricuspid inflow ,suggesting a tumor/thrombus. Mildly dilated LV cavity with a slightly diminished ejection fraction of 45 to 50%. Hypokinetic septum. Mild mitral regurgitation Bioprosthetic aortic valve appears to be well-seated with normal leaflet motion. No significant aortic regurgitation. Features of a small patent foramen ovale. Dr Khoi Ly MD FACC (Electronically Signed) Final Date: 28 October 2022 23:11 S
--- NOTE | 2022-10-28 08:00 | NMCV_ITS ---
NM robin perf SPECT r/s* [id number] Elliott Sumner Age: 82 Gender: M : 1940 Exam Date: 10/28/2022 06:46 Ordering Phys: Ro Gamez MD Technologist: DEE Barker Exam Location: [facility] Indications: CHEST PAIN STRESS TEST Please [facility] IMAGE PROTOCOL Rest/Stress 1 Lexiscan Day Radiopharmaceutical Dose (mCi) Administration Site Administered by Rest: Tc-99m 10.4 IV DEE Holman Sestamibi Stress:Tc-99m 32.4 IV DEE Holman Sestamibi Rest: 28-Oct-2022 60 Discovery 630 Stress: 28-Oct-2022 30 Discovery 630 0.4mg Lexiscan. Supine position only as patient was unable to lay prone. SPECT RESULTS Technical Quality: Excellent Raw Data Analysis: Normal Image Corrections: No attenuation or motion correction applied Summed Stress Score: 7 Summed Rest Score: 9 Summed Difference Score: 0 PERFUSION FINDINGS Small to moderate area of moderately decreased tracer uptake in the apical anterior, apical lateral and LV apex. No severe reversibility was noted in this region. FUNCTIONAL RESULTS (calculated via Gated SPECT) Stress Image LV EF (%): 29 Stress EDV (mL):93 TID: 0.94 Stress ESV (mL):66 FUNCTIONAL FINDINGS: Segmental wall motion analysis revealed severe diffuse hypokinesia of the anterior wall, septum and the LV apex. IMPRESSIONS 1. Myocardial perfusion imaging revealing small to moderate area of moderately decreased persistent tracer uptake in the apical anterior, apical lateral and LV apex suggesting myocardial scarring in the distribution of the left artery descending artery/circumflex artery. 2. Diminished LV ejection fraction 29%. 3. Multiple wall motion normalities as mentioned above. 4. Mildly dilated LV cavity Compared to the study from 07/06/2017, current study shows no significant ischemia. The LV end-systolic volume is decreased from 293 mL to 66 normal. The ejection fraction has improved from 3% to 29% Dr Khoi Ly MD [facility] (Electronically Signed) Final Date: 28 October 2022 09:59 S
[2022-10-28] MEDS: aminophylline 25 mg/mL SDV 10 mL IVP (08:15)
[2022-10-28] MEDS: magnesium oxide 400 mg tablet PO ×2 (08:47→18:05)
[2022-10-28] MEDS: potassium chloride ER 20 mEq Tablet 40 MEQ PO (08:47)
[2022-10-28] MEDS: aspirin 81 mg EC Tablet PO (08:47)
[2022-10-28] MEDS: sennosides-docusate Tablet 1 TAB PO (08:47)
--- NOTE | 2022-10-28 09:11 | P.CONIM_ITS ---
Providers/Reason For Consult Consulting Physician/Specialty*: AILEEN Ly MD/cardiology Reason for Consult*: Patient with possible right atrial mass, to consider SD Requesting Physician: Dr. Gamez Attending Physician: Ro Gamez MD Primary Care Provider: Emigdio Garcia MD History of Present Illness History of Present Illness Elliott Sumner is a 82 year old male with a history of coronary artery disease, LV dysfunction, congestive heart failure, presents with progressive bilateral leg swelling. He had a CT of the chest which revealed a possible right atrial mass. The transthoracic echocardiogram also revealed a mass lesion near to the right atrium, possibly has tachycardia. A SD was requested to better evaluate the lesion. This patient being having swelling of the lower extremities for the last several months. He was treated with oral diuretics on a as needed basis. He has a BNP was in the 200 range. He was doing a very small dose of Lasix which apparently was causing hypotension. So he is admitted to the hospital for further evaluation management. Patient has some amount of shortness of breath with activities. He has no chest pain, fever, chills or cough. His appetite has been poor. He also has been losing some weight. No nausea or vomiting. No dysphagia. No hematemesis or melena. Review of Systems Narrative: CONSTITUTIONAL: No fever or chills. EYES: No blurring of vision or other visual disturbances lately. ENT: No hoarseness of voice, auditory disturbances or sore throat. CARDIOVASCULAR: As mentioned above. RESPIRATORY: No significant cough. GASTROINTESTINAL: No hematemesis or melena. No dysphagia. No recent stomach ulcerations or bleeding GENITOURINARY: No dysuria or hematuria. INTEGUMENTARY: No skin rashes or history of skin cancer. NEURO: No transient ischemic attacks or amaurosis. PSYCHIATRIC: No history of psychosis or major depression. HEMATOLOGIC: No bleeding disorders or significant anemia. ENDOCRINE: No history of polyuria or polydipsia. MUSCULOSKELETAL: No recent joint pain or swelling. ALLERGY/IMMUNOLOGY: As mentioned above. Medications/Allergies Home Medications Medication Instructions Recorded Confirmed Last Taken Type aspirin 81 mg tablet,delayed 81 mg PO DAILY 04/03/20 10/26/22 10/25/22 History release (Adult Aspirin Regimen) metformin 500 mg tablet 250 mg PO BID 04/03/20 10/26/22 10/25/22 History ascorbic acid (vitamin C) 500 mg 500 mg PO DAILY 01/15/22 10/26/22 10/25/22 History tablet (Vitamin C) cetirizine 10 mg tablet (Zyrtec) 10 mg PO DAILY 01/15/22 10/26/22 10/25/22 History cholecalciferol (vitamin D3) 25 25 mcg PO DAILY 01/15/22 10/26/22 10/25/22 History mcg (1,000 unit) capsule (Vitamin D3) echinacea 500 mg capsule 500 mg PO DAILY 01/15/22 10/26/22 10/25/22 History krill 1,000 mg-omega-3 170 mg-dha 1 cap PO DAILY 01/15/22 10/26/22 10/25/22 History 50 mg-epa 80 [id number] capsule (krill oil) multivitamin 1 tab PO DAILY 01/15/22 10/26/22 10/25/22 History methocarbamol 750 mg tablet 750 mg PO Q6H PRN spasms #20 tabs 04/25/22 10/26/22 Unknown Rx potassium chloride 8 mEq 8 meq PO DAILY 30 days #30 caps 10/19/22 10/26/22 10/26/22 Rx capsule,extended release torsemide 20 mg tablet 20 mg PO DAILY #10 tabs 10/19/22 10/26/22 10/26/22 Rx Allergies Allergy/AdvReac Type Severity Reaction Status Date / Time sacubitril [From Entresto] Allergy Intermediate rash Verified 10/19/22 08:08 valsartan [From Entresto] Allergy Intermediate rash Verified 10/19/22 08:08 lisinopril AdvReac Mild Low BP Verified 10/19/22 08:08 Current Medications Generic Name Dose Route Start Last Admin Trade Name Freq PRN Reason Stop Dose Admin Aminophylline 25 mg 10/28/22 06:46 10/28/22 08:15 Aminophylline 25 Mg/Ml Sdv 10 Ml IVP 10/29/22 06:45 25 mg Q2M PRN Administration see dose instructions Aspirin 81 mg 10/27/22 09:00 10/28/22 08:47 Aspirin 81 Mg Ec Tablet PO 81 mg DAILY SANDHYA Administration Bumetanide 1 mg 10/27/22 18:30 10/27/22 21:20 Bumetanide 0.25 Mg/Ml Sdv 4 Ml IVP 1 mg Q24H SANDHYA Administration Insulin Human Lispro 0 unit 10/26/22 18:16 10/28/22 08:30 Insulin Lispro 100 Unit/1 Ml SUBCUT Not Given TIDWM SANDHYA Protocol Magnesium Oxide 400 mg 10/26/22 18:16 10/28/22 08:47 Magnesium Oxide 400 Mg Tablet PO 400 mg BID SANDHYA Administration Potassium Chloride 40 meq 10/27/22 09:00 10/28/22 08:47 Potassium Chloride Er 20 Meq Tablet PO 40 meq DAILY SANDHYA Administration Senna/Docusate Sodium 1 tab 10/27/22 09:00 10/28/22 08:47 Sennosides-Docusate Tablet PO 1 tab DAILY SANDHYA Administration PFSH Acute PFSH: Medical History Allergic rhinitis Aortic valve stenosis Atherosclerotic heart disease CHF (congestive heart failure) Chronic eustachian tube dysfunction Deviated septum Diabetes Hx of cardiomyopathy Patient could not tolerate Entresto Hypertension Nasal turbinate hypertrophy Nonalcoholic fatty liver disease Sensorineural hearing loss Valvular heart disease Surgical History Hx of CABG Family History Father CAD (coronary artery disease), Onset Age: 50 Diabetes Lung disease Grandmother Diabetes Family/Other Cancer Mother Dementia Denies family history of Clotting disorder Chronic kidney disease (CKD) Suicide Anesthesia complication Bleeding disorder Stroke Social History Smoking and tobacco status: never smoked Alcohol intake: never Substance/Drug Use: never Vitals/I&O/Wt Last Vital Signs Temp 97.4 F L 10/28/22 04:00 Pulse 72 10/28/22 08:02 Resp 16 10/28/22 04:00 BP 101/62 10/28/22 08:02 Pulse Ox 92 10/28/22 04:00 O2 Del Method Room Air 10/28/22 04:00 10/27/22 10/28/22 10/28/22 22:59 06:59 14:59 Intake Total 480 / 960 240 / 240 Output Total 325 / 825 400 / 1225 Balance -325 / -345 80 / -265 240 / 240 Weight last 48 hrs Weight 151 lb Physical Exam Narrative: GENERAL: The patient is alert and oriented times three. Not in any acute distress. Has some generalized wasting HEENT: Minimal pallor. No icterus or lymphadenopathy.Oral cavity: There are no mucous membrane lesions. NECK: Trachea appears to be central. No masses noted. No JVD or thyromegaly appreciated. RESPIRATORY: Chest is symmetrical. No intercostals muscle retraction or any accessory muscle activation. There is no chest wall tenderness. Breath sounds are heard bilaterally. No rales or rhonchi heard. No evidence of any consolidation. BREASTS: Deferred. HEART: The heart sounds are normal. No S3 or S4. Short systolic murmur in the left sternal border. No diastolic murmurs no pericardial rub ABDOMEN: No vessel pulsations or distention. No tenderness. No organomegaly appreciated. Bowel sounds are normally heard. : Deferred. RECTAL: Deferred. LYMPHATIC: No lymphadenopathy noted in the neck. EXTREMITIES: No edema or cyanosis. No clubbing. MUSCULOSKELETAL: No acute joint deformities or swelling SKIN: There are no significant rashes or ecchymosis NEUROPSYCHIATRIC: The patient is alert and oriented x3. Appears to be in a good mood. No tremors or rigidity noted. Data 10/28/22 04:36 10/28/22 04:36 CT Chest: My impression: CT done on 10/27/2022 1.? No pulmonary embolism. 2.? Soft tissue mass in the RIGHT atrium. This may be flow artifact but mass such as thrombus or tumor needs to be excluded. Recommend ultrasound evaluation of the RIGHT upper quadrant with attention to the IVC and RIGHT atrium. 3.? Abnormal liver. Very heterogeneous liver. Liver and is to be evaluated by ultrasound for possible hepatic vein or portal vein thrombosis and neoplasm. 4.? Small bilateral pleural effusions, RIGHT greater than LEFT. Echo: My impression: Done on 10/26/2022 The mid and apical septum and the anteroseptal segments are ?found to be almost akinetic and thinned out. ?Severe hypokinesia of the apical inferior wall segment.? LV ?ejection fraction of around 50%. ?Thickened mitral valve. Mild mitral annular calcification. ?There is no pericardial effusion. ?There are no intracardiac masses. ?The bioprosthetic valve the aortic position appears to be well- ?seated.? Gradient across the aortic valve appears to be within ?normal limit. ?Compared to the study from 08/15/2021, the aortic valve appears ?to be replaced ?Addendum: Revised copy of the study done on 10/26/2022 ?There appears to be an echodense mass(3X2 cm)close to the? ?lateral wall of the right atrium with no mobility, most likely ?representing an extracardiac? mass.? May consider SD to better ?evaluate . CXR: My impression: Borderline cardiac silhouette. No lung infiltrates no masses noted. EKG 1: My Interpretation: The EKG showed a sinus tachycardia with a rate of 108 bpm. Right bundle branch block pattern. Left anterior fascicular block. Possible old anteroseptal DE. A&P Assessment and plan (1) Right atrial mass: To better evaluate the right atrial structures, it would be appropriate to do a SD. (2) CHF (congestive heart failure): Clinically appears to be compensated. (3) Dyslipidemia: (4) Atherosclerosis of coronary artery of [place] heart without angina pectoris: Patient currently has no chest pain or any specific cardiac symptoms. Patient had a Myocardial perfusion imaging this morning. Results are pending. Qualifiers: Coronary Disease-Associated Artery/Lesion type: [place] artery Qualified Code(s): I25.10 - Atherosclerotic heart disease of [place] coronary artery without angina pectoris (5) Hx of cardiomyopathy: The LV ejection fraction around 50%. (6) Hypertension: Currently normotensive Qualifiers: Hypertension type: essential hypertension Qualified Code(s): I10 - Essential (primary) hypertension Plan Other problems: Before. I discussed with the patient in detail about the procedure, risk and benefits The risk of aspiration, bleeding, soft tissue injury, perforation of the stomach/esophagus and other concomitant complications were explained to the patient in detail. The patient understood this well and consented to proceed Patient will be kept n.p.o. Scheduled to have the procedure around 1:00. Based on the results, further recommendations will be made Consult Attestations Medical Necessity Statement: Patient requires continued hospital stay for close monitoring and further management Coding Level of Care Code Acute Code for Chg Fwd Diagnoses Right atrial mass I51.89 CHF (congestive heart failure) I50.9 Dyslipidemia E78.5 Atherosclerosis of coronary artery of [place] heart without angina pectoris I25.10 Coronary Disease-Associated Artery/Lesion type: [place] artery Hx of cardiomyopathy Z86.79 Hypertension I10 Hypertension type: essential hypertension
--- NOTE | 2022-10-28 11:10 | P.PN_ITS ---
Subjective Subjective: No leukocytosis noted No overnight events Stress test today Stress test EF was reported as 29% with LAD left circumflex arterial territorial decrease tracer uptake No signs of hepatic vein thrombosis Plan for transesophageal echo to rule out atrial mass versus thrombus Vitals/I&O/Wt Last Vital Signs Temp 97.8 F 10/28/22 08:00 Pulse 72 10/28/22 08:02 Resp 18 10/28/22 08:00 BP 101/62 10/28/22 08:02 Pulse Ox 96 10/28/22 08:00 O2 Del Method Room Air 10/28/22 08:00 10/27/22 10/28/22 10/28/22 22:59 06:59 14:59 Intake Total 480 / 960 240 / 240 Output Total 325 / 825 400 / 1225 Balance -325 / -345 80 / -265 240 / 240 Weight last 48 hrs Weight 68.492 kg Physical Exam Narrative: Clinically patient looks fluid overloaded Lower extremity edema Pale complexion Awake and alert No abdominal pain no chest pain Currently on room air No active complaints GCS 15 Pleasant and cooperative Hemodynamically stable Data 10/28/22 04:36 10/28/22 04:36 A&P Assessment and plan (1) Right atrial mass: (2) Tachycardia: (3) Leg swelling: (4) CHF (congestive heart failure): (5) Hx of cardiomyopathy: (6) Hypertension: Qualifiers: Hypertension type: essential hypertension Qualified Code(s): I10 - Essential (primary) hypertension Plan Acute D CHF exacerbation On echo EF is read as 50% however previous EF was 30 to 35% Continue Bumex Clinical signs of fluid overload Patient is able to lay flat I will transition to p.o. diuretics tomorrow Continue potassium supplementation Intracardiac mass versus atrial thrombus? Plan for transesophageal echo at [address] Ly on board Leukocytosis no active source of infection Monitor for now Afebrile Heterogeneous liver finding on CT chest I will request CT abdomen pelvis for further delineation, no signs of worsening of transaminases, normal bilirubin Hypomagnesemia: Repleted Patient lives with his at home High D-dimer with tachycardia: PE ruled out no signs of clot on venous Doppler Start cardiac diet once he is done with transesophageal echo Full code Request physical therapy Attestations Medical Necessity Statement*: Continue medical management Diagnoses Right atrial mass I51.89 Tachycardia R00.0 Leg swelling M79.89 CHF (congestive heart failure) I50.9 Hx of cardiomyopathy Z86.79 Hypertension I10 Hypertension type: essential hypertension
--- NOTE | 2022-10-28 11:13 | CT_ITS ---
WS: [id number] CT ABDOMEN AND PELVIS WITH CONTRAST HISTORY: liver enlargement TECHNIQUE: Imaging performed of the abdomen and pelvis with IV contrast. Single phase imaging of the abdomen. Coronal and sagittal reformats are submitted. All CT scans at [facility] use at [address] one of these dose optimization techniques: automated exposure control; mA and/or kV adjustment per patient size (includes targeted exams where dose is matched to clinical indication); or iterative re construction. IV CONTRAST: Omnipaque 350; 100 mL IV. Oral contrast: Yes. DLP: 505.98 mGy.cm COMPARISON: CT angiogram chest 10/27/2022 Lower thorax: Small layering RIGHT pleural effusion. Very tiny LEFT pleural effusion. Heart size is n ormal. Again noted is a filling defect in the RIGHT atrium that was also described on 10/27/2022. Soft tissue masslike projection in the RIGHT atrium persists but appears slightly less masslike and may be a thrombus which has changed configuration. Prior CABG. No hiatal hernia. Liver/biliary system: Markedly abnormal appearance of the liver. Variable enhancement and attenuation throughout the liver. Bulging of the contour of the caudate lobe. Variable enhancement with areas of necrosis in the caudate lobe. Abnormal Cardiolite lobe is contiguous with the thrombus in the IVC. D ecreased attenuation in the IVC extending into the hepatic veins. Central hepatic veins are thrombose d. 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 Portion of the portal vein thrombosis extends from the liver into the vein and therefore concerning for tumor. Thrombus within the IVC extends into the proximal LEFT renal vein. Thrombus extends just inferior to the renal veins. Gallbladder: Cholelithiasis. Pancreas: Normal size pancreas and pancreatic duct. No adjacent inflammation. Spleen: Granulomatous. Normal size. Adrenal glands: Normal. Right kidney: Enhancing solid renal mass measuring 1.6 cm posterior upper pole. No obstruction. Nonob structing calcification lower pole. Left kidney: Numerous renal cysts. No obstruction. Largest cyst lower pole measures 5.3 x 6.2 cm. Aorta: Atherosclerotic plaque. Lymphadenopathy: None. Free fluid: Small amount of free fluid in the pelvis predominantly but extends also around the liver, spleen and along the paracolic gutters. Soft tissue anasarca. GI tract: Normally distended stomach. No small bowel obstruction: Obstruction. Mild constipation. Abdominal wall: Soft tissue anasarca. Pelvis: Free fluid in the pelvis. Soft tissue anasarca. Bones: L1 20% compression fracture. CT/CT abdomen pelvis w con* [id number] IMPRESSION: 1. Markedly abnormal appearance to the liver and associated hepatic and portal veins. 2. Large amount of thrombus distending the IVC and extending into the RIGHT at rium. Extensive thrombus extending into the hepatic veins and the portal veins and in the proximal LEFT renal vein and just below the level of the renal veins . Thrombus extends from the liver into the portal vein therefore more suspiciou s for tumor thrombus. 3. Bulging contour of the caudate lobe with variable attenuation. Mass is not excluded on this appearance. This may be necrotic mass or edema causing the dis tention along with thrombus. 4. [place] versus tumor thrombus should be considered. An underlying neoplasm is not excluded within the liver. 5. Solid renal mass 1.5 cm superior RIGHT kidney suspicious for renal cell felisha plasm. 6. Small amount of ascites throughout the abdomen and pelvis with diffuse soft tissue anasarca. 7. Small bilateral pleural effusions, RIGHT greater than LEFT.
[2022-10-28 11:21] LABS: Glucose Point of Care 150 mg/dL (70-110)
[2022-10-28] MEDS: iohexol 350 mg/mL 500 mL Btl (per mL) IV (11:35)
--- NOTE | 2022-10-28 12:39 | ANES.PREANE2 ---
Pre-Anesthetic Assessment Height/Weight: Height 1.68 m Weight 68.492 kg Temp Pulse Resp BP Pulse Ox O2 Del Method 97.8 F 107 H 18 122/80 95 Room Air 10/28/22 12:32 10/28/22 12:32 10/28/22 12:32 10/28/22 12:32 10/28/22 12:32 10/28/22 12:32 Preop Diagnosis: atrial mass Operation Date: 10/28/22 13:00 Proposed Procedures p SD(Not Applicable) - Khoi Ly MD Familial anesthetic complications: none Was Beta Issac taken within 24 hours: N/A Last intake: meal- 1800 dinner drink- 0945 Social No alcohol and No tobacco Exam alert, oriented x 3, clear to auscultation bilaterally and regular rate & rhythm Airway Submandibular: within normal limits Cervical ROM: within normal limits Mallampati: Class III Dentition: full Pulmonary None reported CV/HEM Coronary Artery Disease, Congestive Heart Failure and Myocardial Infarction CABG x 3 AVR 2018 Cardiac Mass, history of reduced EF. Stress test and CT 10/28/22 None reported Hepatic Fatty Liver GI None reported Metabolic Diabetes Mellitus (metformin) Musc/skel Weakness (cane use) Neuropsych None reported Anesthetic Plan ASA status: 4 Anesthesia: MAC Medications/Allergies Home Medications Medication Instructions Recorded Confirmed Last Taken Type aspirin 81 mg tablet,delayed 81 mg PO DAILY 04/03/20 10/26/22 10/25/22 History release (Adult Aspirin Regimen) metformin 500 mg tablet 250 mg PO BID 04/03/20 10/26/22 10/25/22 History ascorbic acid (vitamin C) 500 mg 500 mg PO DAILY 01/15/22 10/26/22 10/25/22 History tablet (Vitamin C) cetirizine 10 mg tablet (Zyrtec) 10 mg PO DAILY 01/15/22 10/26/22 10/25/22 History cholecalciferol (vitamin D3) 25 25 mcg PO DAILY 01/15/22 10/26/22 10/25/22 History mcg (1,000 unit) capsule (Vitamin D3) echinacea 500 mg capsule 500 mg PO DAILY 01/15/22 10/26/22 10/25/22 History krill 1,000 mg-omega-3 170 mg-dha 1 cap PO DAILY 01/15/22 10/26/22 10/25/22 History 50 mg-epa 80 [id number] capsule (krill oil) multivitamin 1 tab PO DAILY 01/15/22 10/26/22 10/25/22 History methocarbamol 750 mg tablet 750 mg PO Q6H PRN spasms #20 tabs 04/25/22 10/26/22 Unknown Rx potassium chloride 8 mEq 8 meq PO DAILY 30 days #30 caps 10/19/22 10/26/22 10/26/22 Rx capsule,extended release torsemide 20 mg tablet 20 mg PO DAILY #10 tabs 10/19/22 10/26/22 10/26/22 Rx Allergies Allergy/AdvReac Type Severity Reaction Status Date / Time sacubitril [From Entresto] Allergy Intermediate rash Verified 10/19/22 08:08 valsartan [From Entresto] Allergy Intermediate rash Verified 10/19/22 08:08 lisinopril AdvReac Mild Low BP Verified 10/19/22 08:08 Current Medications Generic Name Dose Route Start Last Admin Trade Name Juanq PRN Reason Stop Dose Admin Aminophylline 25 mg 10/28/22 06:46 10/28/22 08:15 Aminophylline 25 Mg/Ml Sdv 10 Ml IVP 10/29/22 06:45 25 mg Q2M PRN Administration see dose instructions Aspirin 81 mg 10/27/22 09:00 10/28/22 08:47 Aspirin 81 Mg Ec Tablet PO 81 mg DAILY SANDHYA Administration Bumetanide 1 mg 10/27/22 18:30 10/27/22 21:20 Bumetanide 0.25 Mg/Ml Sdv 4 Ml IVP 1 mg Q24H SANDHYA Administration Insulin Human Lispro 0 unit 10/26/22 18:16 10/28/22 11:22 Insulin Lispro 100 Unit/1 Ml SUBCUT Not Given TIDWM SANDHYA Protocol Magnesium Oxide 400 mg 10/26/22 18:16 10/28/22 08:47 Magnesium Oxide 400 Mg Tablet PO 400 mg BID SANDHYA Administration Potassium Chloride 40 meq 10/27/22 09:00 10/28/22 08:47 Potassium Chloride Er 20 Meq Tablet PO 40 meq DAILY SANDHYA Administration Senna/Docusate Sodium 1 tab 10/27/22 09:00 10/28/22 08:47 Sennosides-Docusate Tablet PO 1 tab DAILY SANDHYA Administration PFSH Anesthesia Medical History Allergic rhinitis Aortic valve stenosis Atherosclerotic heart disease CHF (congestive heart failure) Chronic eustachian tube dysfunction Deviated septum Diabetes Hx of cardiomyopathy Patient could not tolerate Entresto Hypertension Nasal turbinate hypertrophy Nonalcoholic fatty liver disease Sensorineural hearing loss Valvular heart disease Surgical History Hx of CABG Family History Father CAD (coronary artery disease), Onset Age: 50 Diabetes Lung disease Grandmother Diabetes Family/Other Cancer Mother Dementia Denies family history of Clotting disorder Chronic kidney disease (CKD) Suicide Anesthesia complication Bleeding disorder Stroke Social History Smoking and tobacco status: never smoked Alcohol intake: never Substance/Drug Use: never Data Anesthesia 10/28/22 04:36 10/28/22 04:36 Short CBC 10/26/22 10/27/22 10/28/22 Range/Units 12:45 04:38 04:36 WBC 13.3 H 13.9 H 17.7 H (4.0-10.0) 10^3/uL Hgb 12.8 12.7 13.2 (11.7-16.6) g/dL Hct 39.2 L 38.9 L 40.2 L (42.0-52.0) % MCV 91.8 91.1 90.5 (80-94) fl Plt Count 151 163 188 (130-400) 10^3/cmm Neut % (Auto) 86.9 88.1 87.4 % Neut # (Auto) 11.57 H 12.25 H 15.45 H (1.8-7.7) 10^3/uL BMP 10/26/22 10/27/22 10/28/22 12:45 04:38 04:36 Sodium 131 L 134 L 134 L Potassium 3.5 3.5 3.6 Chloride 91 L 91 L 91 L Carbon Dioxide 27 30 H 30 H BUN 33 H 34 H 33 H Creatinine 1.1 1.0 1.0 Glucose 163 H 131 H 139 H Calcium 9.4 9.2 9.4 Cardiac Enzymes 10/26/22 10/26/22 10/26/22 Range/Units 12:45 13:25 15:19 Creatine Kinase 26 L (39-308) U/L Troponin T Baseline 40 H (0-15) ng/L Troponin T 120 Minute 41.99 H (0-15) ng/L Delta Troponin T 1.99 (0-10) ABS# Troponin T Hi Sens 6Hr (0-15) ng/L Troponin T Hi Sens 6Hr Delta (0-12) ng/L NT-Pro-B Natriuret Pep 525 H (0-450) pg/mL 10/26/22 Range/Units 19:25 Creatine Kinase (39-308) U/L Troponin T Baseline (0-15) ng/L Troponin T 120 Minute (0-15) ng/L Delta Troponin T (0-10) ABS# Troponin T Hi Sens 6Hr 39.09 H (0-15) ng/L Troponin T Hi Sens 6Hr Delta -0.91 L (0-12) ng/L NT-Pro-B Natriuret Pep (0-450) pg/mL Liver Function 10/26/22 Range/Units 12:45 Total Bilirubin 1.2 (0.15-1.2) mg/dL AST 96 H (0-40) U/L ALT 67 H (0-41) U/L Alkaline Phosphatase 222 H (40-130) U/L Albumin 3.3 L (3.5-5.2) g/dL Urine 10/26/22 Range/Units 14:41 Urine Color Yellow (Yellow) Urine Appearance Clear (CLEAR) Urine pH 5 (5-7) Ur Specific [place] 1.005 (1.005-1.030) Urine Protein Neg (Negative) Urine Glucose (UA) Norm (Normal) Urine Ketones Negative (Negative) Urine Nitrate Negative (Negative) Urine Bilirubin Neg (Negative) Ur Leukocyte Esterase Negative (Negative) Coags 10/26/22 12:45 D-Dimer 2.93 H Cardiac Studies: Echocardiogram 10/26/22 Echocardiogram Ultrasound 08/15/21 Sestamibi Stress Test (Cardiology) 10/27/22 Cardiac Event Monitor 02/18/21
[2022-10-28] MEDS: sodium chloride 0.9% 1,000 ML 30 ML IV (12:40)
--- NOTE | 2022-10-28 13:06 | W.PM.OPSUD ---
Surgery/Procedure H&P Update DATE OF PROCEDURE: October 28, 2022 DATE H&P PERFORMED: 10/28/22 PREOP DIAGNOSIS: atrial mass PRIMARY INDICATION FOR PROCEDURE: possible rith atrial mass PLANNED PROCEDURE: Operation Date: 10/28/22 13:00 Proposed Procedures p SD(Not Applicable) - Khoi Ly MD
--- NOTE | 2022-10-28 13:29 | SUR.OPER ---
1325-Bubble study done during SD with 8ml NS and 2ml air.
--- NOTE | 2022-10-28 14:56 | ANE.PACU2 ---
Inpatient post-anesthesia follow up: Airway intact: Yes Vital signs: Temperature 98.7 F Pulse Rate 96 Respiratory Rate 18 Blood Pressure 112/76 Pulse Oximetry 92 Oxygen Delivery Me thod Room Air Oxygen Flow Rate 4 Fraction of Inspir ed Oxygen Hydration adequate: Yes Nausea and vomiting: No Pain level: 1 Mental status: Baseline
[2022-10-28] MEDS: enoxaparin 80 mg/0.8 mL Syringe 70 MG SUBCUT (16:11)
[2022-10-28 17:27] LABS: Glucose Point of Care 195 mg/dL (70-110)
[2022-10-28] MEDS: insulin lispro 100 unit/1 mL SUBCUT (18:05)
[2022-10-28] MEDS: bumetanide 0.25 mg/mL SDV 4 mL 1 MG IVP (18:39)
[2022-10-28 20:58] LABS: Glucose Point of Care 219 mg/dL (70-110)
[2022-10-29] VITALS (7 sets, daily range): BP systolic 111–141; BP diastolic 74–92; PULSE 89–104; RESP 16–18; TEMP 36.3–36.8; O2SAT 93–97
[2022-10-29] MEDS: enoxaparin 80 mg/0.8 mL Syringe 70 MG SUBCUT ×2 (02:28→16:34)
[2022-10-29 05:17] LABS: Basophils # 0.1 10^3/uL (0.0-0.1); Basophils % 0.3 %; Eosinophils % 0.1 %; Hematocrit 40.5 % (42.0-52.0); Hemoglobin 13.5 g/dL (11.7-16.6); Mean Corpuscular HGB Conc 33.3 g/dL (30.0-36.0); Mean Platelet Volume 10.7 fL (7.4-10.4); Monocytes % 6.4 %; Neutrophils # 13.88 10^3/uL (1.8-7.7); Neutrophils % 86.6 %; Nucleated Red Blood Cells % 0 %; Platelet Count 166 10^3/cmm (130-400); Red Cell Distribution Width 14.7 % (12.1-15.1)
[2022-10-29 05:34] LABS: Anion Gap 20.2 (5-19); Blood Urea Nitrogen 41 mg/dL (8-23); Calcium 8.9 mg/dL (8.5-10.5); Carbon Dioxide 28 mmol/L (22-29); Chloride 89 mmol/L (98-107); Glucose 151 mg/dL (65-115); Osmolality Calculated 289 mOsm/kg (285-295); Potassium 4.2 mmol/L (3.5-5.1); Sodium 133 mmol/L (136-145)
[2022-10-29 06:23] LABS: Glucose Point of Care 129 mg/dL (70-110)
[2022-10-29] MEDS: magnesium oxide 400 mg tablet PO (09:48)
[2022-10-29] MEDS: TORSEmide 20 mg Tablet PO (09:48)
[2022-10-29] MEDS: aspirin 81 mg EC Tablet PO (09:48)
[2022-10-29] MEDS: potassium chloride ER 20 mEq Tablet 40 MEQ PO (09:48)
--- NOTE | 2022-10-29 10:56 | PM.TDS ---
Transfer Summary Providers Date of Admission: 10/26/22 15:26 Date of Discharge/Transfer: 10/29/22 Attending Provider at Admission: Ro Gamez MD Attending Provider at Transfer: Ro Gamez MD Primary Care Provider: Emigdio Garcia MD Transfer Plans: Anticipated date of transfer: 10/30/22. Diagnoses at Discharge Discharge Diagnosis (1) Right atrial mass: Status: Acute (2) CHF (congestive heart failure): Status: Acute (3) Dyslipidemia: Status: Inactive (4) Atherosclerosis of coronary artery of [place] heart without angina pectoris: Status: Inactive Qualifiers: Coronary Disease-Associated Artery/Lesion type: [place] artery Qualified Code(s): I25.10 - Atherosclerotic heart disease of [place] coronary artery without angina pectoris (5) Hx of cardiomyopathy: Status: Acute Permanent problem details: Patient could not tolerate Entresto (6) Hypertension: Status: Acute Qualifiers: Hypertension type: essential hypertension Qualified Code(s): I10 - Essential (primary) hypertension Reason for Visit Reason for Visit dr Ly sent, fluid ret Hospital Course Hospital Course 82-year-old male who was sent from the PCP clinic for concern of congestive heart failure for lower extremity edema, his previous EF was 30 to 35%, he was diuresed aggressively with Lasix 60 mg IV every 12 hours for 48hrs , he did put out good amount of urine which did not worsen his kidney function, patient remained on room air, his lower extremity edema did not improve, his D-dimer was high, CTA chest venous Doppler did not show any DVT or PE, on CTA chest radiologist reported cardiac mass, cardiology was consulted for transesophageal echo which showed thrombus in right atria stemming from the vena cava, echo showed wall motion abnormality, lexiscan cardiac stress test was requested , Echo read by Dr Ly geographic information systems analyst showed EF improvement from 35% to 49% with wall motion abnormality, CT abdomen pelvis with contrast was requested for abnormal transaminases which showed the following .1-? Markedly abnormal appearance to the liver and associated hepatic and portal veins. 2.? Large amount of thrombus distending the IVC and extending into the RIGHT atrium. Extensive thrombus extending into the hepatic veins and the portal veins and in the proximal LEFT renal vein and just below the level of the renal veins. Thrombus extends from the liver into the portal vein therefore more suspicious for tumor thrombus. 3.? Bulging contour of the caudate lobe with variable attenuation. Mass is not excluded on this appearance. This may be necrotic mass or edema causing the distention along with thrombus. 4.? [place] versus tumor thrombus should be considered. An underlying neoplasm is not excluded within the liver. 5.? Solid renal mass 1.5 cm superior RIGHT kidney suspicious for renal cell neoplasm. 6.? Small amount of ascites throughout the abdomen and pelvis with diffuse soft tissue anasarca. 7.? Small bilateral pleural effusions, RIGHT greater than LEFT. nuclear stress test IMPRESSIONS ?1.? Myocardial perfusion imaging revealing small to moderate area of moderately ?decreased persistent tracer uptake in the apical anterior, apical lateral and ?LV apex suggesting myocardial scarring in the distribution of the left artery ?descending artery/circumflex artery. ?2.? Multiple wall motion normalities as mentioned above. ?3.? Mildly dilated LV cavity ?Compared to the study from 07/06/2017, current study shows no significant ?ischemia CTA achest 1-.? No pulmonary embolism. 2.? Soft tissue mass in the RIGHT atrium. This may be flow artifact but mass such as thrombus or tumor needs to be excluded. Recommend ultrasound evaluation of the RIGHT upper quadrant with attention to the IVC and RIGHT atrium. 3.? Abnormal liver. Very heterogeneous liver. Liver and is to be evaluated by ultrasound for possible hepatic vein or portal vein thrombosis and neoplasm. 4.? Small bilateral pleural effusions, RIGHT greater than LEFT. Case was [facility] (do not have any beds available) [facility] has 1 week of waiting list Patient has been accepted by Dr. Quinones hospitalist at [facility], Urologist Dr. Fischer will be consulted, [facility] surgery was also notified. [place] CONCLUSIONS ?Somewhat heterogenous circumscribed irregular mass measuring 1.9 ?x 2.6 cm extending from the inferior vena cava into the ?tricuspid inflow ,suggesting a tumor/thrombus. ?Mildly dilated LV cavity with a slightly diminished ejection ?fraction of 45 to 50%. ?Hypokinetic septum. ?Mild mitral regurgitation ?Bioprosthetic aortic valve appears to be well-seated with normal ?leaflet motion. ?No significant aortic regurgitation. ?Features of a small patent foramen ovale. WBC 17 K ( Inc from 13k) Hg [place] at 8.5 CR 1.0 AFP marker :1492 Physical Exam Narrative: Patient is laying supine Lower extremity swelling has not improved No testicular mass Genital swelling has improved Currently on room air Nonfocal neuro exam S1, S2 Currently on room air Blood pressure 141/92 mmHg TS Data Studies Completed and Pending Pending at discharge Category Date Time Status Basic Metabolic Panel AM LABS Lab 10/29/22 04:00 Ordered Complete Blood Count w/Auto AM LABS Lab 10/29/22 04:00 Ordered CV. echo transesophageal [id number] Urgent Ultrasound 10/28/22 07:53 Taken Labs from last 24 hours 10/28/22 10/28/22 10/28/22 17:24 11:09 06:36 WBC RBC Hgb Hct MCV MCH MCHC RDW Plt Count MPV Neut % (Auto) Lymph % (Auto) [place] % (Auto) Eos % (Auto) Baso % (Auto) Neut # (Auto) Lymph # (Auto) [place] # (Auto) Eos # (Auto) Baso # (Auto) Nucleated RBC % (auto) Nucleated RBCs # Sodium Potassium Chloride Carbon Dioxide Anion Gap BUN Creatinine GFR Calculation Glucose POC Glucose 195 H 150 H 156 H Calculated Osmolality Calcium Tumor Marker AFP 10/28/22 10/28/22 10/28/22 04:36 04:36 04:36 WBC 17.7 H RBC 4.44 Hgb 13.2 Hct 40.2 L MCV 90.5 MCH 29.7 MCHC 32.8 RDW 14.6 Plt Count 188 MPV 10.6 H Neut % (Auto) 87.4 Lymph % (Auto) 6.5 [place] % (Auto) 5.0 Eos % (Auto) 0.1 Baso % (Auto) 0.3 Neut # (Auto) 15.45 H Lymph # (Auto) 1.2 [place] # (Auto) 0.9 Eos # (Auto) 0.0 Baso # (Auto) 0.1 Nucleated RBC % (auto) 0 Nucleated RBCs # 0.0 Sodium 134 L Potassium 3.6 Chloride 91 L Carbon Dioxide 30 H Anion Gap 16.6 BUN 33 H Creatinine 1.0 GFR Calculation Not Reportable Glucose 139 H POC Glucose Calculated Osmolality 288 Calcium 9.4 Tumor Marker AFP 1492.0 H 10/27/22 20:45 WBC RBC Hgb Hct MCV MCH MCHC RDW Plt Count MPV Neut % (Auto) Lymph % (Auto) [place] % (Auto) Eos % (Auto) Baso % (Auto) Neut # (Auto) Lymph # (Auto) [place] # (Auto) Eos # (Auto) Baso # (Auto) Nucleated RBC % (auto) Nucleated RBCs # Sodium Potassium Chloride Carbon Dioxide Anion Gap BUN Creatinine GFR Calculation Glucose POC Glucose 125 H Calculated Osmolality Calcium Tumor Marker AFP Completed Studies During Hospitalization Category Date Time Status CT abdomen pelvis w con* [id number] Routine Cat Scan 10/28/22 11:13 Completed CTA PE [CT angio chest PE protcl [id number]] Routine Cat Scan 10/27/22 10:00 Completed Sestamibi Stress Test Request Routine Exams 10/27/22 11:37 Draft XR chest 1V portable [id number] Stat Exams 10/26/22 12:30 Completed NM robin perf SPECT r/s* [id number] Routine Nuc Med 10/28/22 08:00 [place] [id number] Routine Ultrasound 10/27/22 08:44 Completed CV. echo complete* [id number] Routine Ultrasound 10/26/22 18:16 Completed US duplex IVC [CV duplex IVC [id number]] Routine Ultrasound 10/27/22 18:16 Completed Laboratory Last Values WBC 17.7 10^3/uL (4.0-10.0) H 10/28/22 04:36 RBC 4.44 10^6/uL (4.1-5.3) 10/28/22 04:36 Hgb 13.2 g/dL (11.7-16.6) 10/28/22 04:36 Hct 40.2 % (42.0-52.0) L 10/28/22 04:36 MCV 90.5 fl (80-94) 10/28/22 04:36 MCH 29.7 pg (28.0-34.0) 10/28/22 04:36 MCHC 32.8 g/dL (30.0-36.0) 10/28/22 04:36 RDW 14.6 % (12.1-15.1) 10/28/22 04:36 Plt Count 188 10^3/cmm (130-400) 10/28/22 04:36 MPV 10.6 fL (7.4-10.4) H 10/28/22 04:36 Neut % (Auto) 87.4 % 10/28/22 04:36 Lymph % (Auto) 6.5 % 10/28/22 04:36 [place] % (Auto) 5.0 % 10/28/22 04:36 Eos % (Auto) 0.1 % 10/28/22 04:36 Baso % (Auto) 0.3 % 10/28/22 04:36 Neut # (Auto) 15.45 10^3/uL (1.8-7.7) H 10/28/22 04:36 Lymph # (Auto) 1.2 10^3/uL (0.8-4.8) 10/28/22 04:36 [place] # (Auto) 0.9 10^3/uL (0.2-0.9) 10/28/22 04:36 Eos # (Auto) 0.0 10^3/uL (0.0-0.8) 10/28/22 04:36 Baso # (Auto) 0.1 10^3/uL (0.0-0.1) 10/28/22 04:36 Nucleated RBC % (auto) 0 % 10/28/22 04:36 Nucleated RBCs # 0.0 /100WBC 10/28/22 04:36 D-Dimer 2.93 ug/mIFEU (0-0.59) H 10/26/22 12:45 Sodium 134 mmol/L (136-145) L 10/28/22 04:36 Potassium 3.6 mmol/L (3.5-5.1) 10/28/22 04:36 Chloride 91 mmol/L (98-107) L 10/28/22 04:36 Carbon Dioxide 30 mmol/L (22-29) H 10/28/22 04:36 Anion Gap 16.6 (5-19) 10/28/22 04:36 BUN 33 mg/dL (8-23) H 10/28/22 04:36 Creatinine 1.0 mg/dL (0.7-1.2) 10/28/22 04:36 GFR Calculation Not Reportable 10/28/22 04:36 Glucose 139 mg/dL (65-115) H 10/28/22 04:36 POC Glucose 195 mg/dL (70-110) H 10/28/22 17:24 Estimat Average Glucose 137 10/26/22 12:45 Hemoglobin A1c 6.4 % (4.0-6.0) H 10/26/22 12:45 Calculated Osmolality 288 mOsm/kg (285-295) 10/28/22 04:36 Calcium 9.4 mg/dL (8.5-10.5) 10/28/22 04:36 Phosphorus 3.3 mg/dL (2.5-4.5) 10/27/22 04:38 Magnesium 1.6 mg/dL (1.7-2.3) L 10/27/22 04:38 Total Bilirubin 1.2 mg/dL (0.15-1.2) 10/26/22 12:45 AST 96 U/L (0-40) H 10/26/22 12:45 ALT 67 U/L (0-41) H 10/26/22 12:45 Alkaline Phosphatase 222 U/L (40-130) H 10/26/22 12:45 Creatine Kinase 26 U/L (39-308) L 10/26/22 12:45 Troponin T Baseline 40 ng/L (0-15) H 10/26/22 13:25 Troponin T 120 Minute 41.99 ng/L (0-15) H 10/26/22 15:19 Delta Troponin T 1.99 ABS# (0-10) 10/26/22 15:19 Troponin T Hi Sens 6Hr 39.09 ng/L (0-15) H 10/26/22 19:25 Troponin T Hi Sens 6Hr Delta -0.91 ng/L (0-12) L 10/26/22 19:25 NT-Pro-B Natriuret Pep 525 pg/mL (0-450) H 10/26/22 12:45 Total Protein 6.0 g/dL (6.6-8.7) L 10/26/22 12:45 Albumin 3.3 g/dL (3.5-5.2) L 10/26/22 12:45 Globulin 2.7 g/dL (1.3-4.6) 10/26/22 12:45 Tumor Marker AFP 1492.0 ng/mL (0-8.3) H 10/28/22 04:36 Urine Color Yellow (Yellow) 10/26/22 14:41 Urine Appearance Clear (CLEAR) 10/26/22 14:41 Urine pH 5 (5-7) 10/26/22 14:41 Ur Specific [place] 1.005 (1.005-1.030) 10/26/22 14:41 Urine Protein Neg (Negative) 10/26/22 14:41 Urine Glucose (UA) Norm (Normal) 10/26/22 14:41 Urine Ketones Negative (Negative) 10/26/22 14:41 Urine Blood Neg (Negative) 10/26/22 14:41 Urine Nitrate Negative (Negative) 10/26/22 14:41 Urine Bilirubin Neg (Negative) 10/26/22 14:41 Urine Urobilinogen Norm mg/dL (Negative) 10/26/22 14:41 Ur Leukocyte Esterase Negative (Negative) 10/26/22 14:41 Radiology Impressions Chest X-Ray 10/26/22 12:30 IMPRESSION: No acute findings. No significant change. Chest CTA 10/27/22 10:00 IMPRESSION: 1. No pulmonary embolism. 2. Soft tissue mass in the RIGHT atrium. This may be flow artifact but mass such as thrombus or tumor needs to be excluded. Recommend ultrasound evaluation of the RIGHT upper quadrant with attention to the IVC and RIGHT atrium. 3. Abnormal liver. Very heterogeneous liver. Liver and is to be evaluated by ultrasound for possible hepatic vein or portal vein thrombosis and neoplasm. 4. Small bilateral pleural effusions, RIGHT greater than LEFT. Abdomen/Pelvis CT 10/28/22 11:13 IMPRESSION: 1. Markedly abnormal appearance to the liver and associated hepatic and portal veins. 2. Large amount of thrombus distending the IVC and extending into the RIGHT atrium. Extensive thrombus extending into the hepatic veins and the portal veins and in the proximal LEFT renal vein and just below the level of the renal veins. Thrombus extends from the liver into the portal vein therefore more suspicious for tumor thrombus. 3. Bulging contour of the caudate lobe with variable attenuation. Mass is not excluded on this appearance. This may be necrotic mass or edema causing the distention along with thrombus. 4. [place] versus tumor thrombus should be considered. An underlying neoplasm is not excluded within the liver. 5. Solid renal mass 1.5 cm superior RIGHT kidney suspicious for renal cell neoplasm. 6. Small amount of ascites throughout the abdomen and pelvis with diffuse soft tissue anasarca. 7. Small bilateral pleural effusions, RIGHT greater than LEFT. Recent Clincial Data Last Vital Signs Temp 98.0 F 10/28/22 16:08 Pulse 97 10/28/22 16:08 Resp 16 10/28/22 16:08 BP 114/80 10/28/22 16:08 Pulse Ox 93 10/28/22 16:08 O2 Del Method Room Air 10/28/22 16:08 O2 Flow Rate 4 10/28/22 13:50 Vital Signs Temp Pulse Resp BP Pulse Ox O2 Del Method O2 Flow Rate 10/28/22 16:08 98.0 F 97 16 114/80 93 Room Air 10/28/22 14:06 96 18 112/76 92 Room Air 10/28/22 13:50 100 16 115/82 98 Nasal Cannula 4 10/28/22 13:37 98.7 F 98 16 99/72 95 Nasal Cannula 5 10/28/22 12:32 97.8 F 107 H 18 122/80 95 Room Air 10/28/22 08:00 97.8 F 100 18 122/78 96 Room Air 10/28/22 08:02 72 101/62 Intake & Output/Weight 10/26/22 10/27/22 10/28/22 10/29/22 06:59 06:59 06:59 06:59 Intake Total 120 / 120 960 / 960 830 / 830 Output Total 1500 / 1500 1225 / 1225 Balance -1380 / -1380 -265 / -265 830 / 830 Weight 68.492 kg Vitals Last Vital Signs Temp 98.0 F 10/28/22 16:08 Pulse 97 10/28/22 16:08 Resp 16 10/28/22 16:08 BP 114/80 10/28/22 16:08 Pulse Ox 93 10/28/22 16:08 O2 Del Method Room Air 10/28/22 16:08 O2 Flow Rate 4 10/28/22 13:50 TS Medications Medications Acetaminophen (Acetaminophen 500 Mg Tablet) 500 mg PO Q4H PRN PRN Reason: fever Albuterol/Ipratropium (Ipratropium-Albuterol 3 Ml Neb) 3 ml INHALATION Q6H PRN PRN Reason: SHORTNESS OF BREATH Aminophylline (Aminophylline 25 Mg/Ml Sdv 10 Ml) 25 mg IVP Q2M PRN PRN Reason: see dose instructions Stop: 10/29/22 06:45 Last Admin: 10/28/22 08:15 Dose: 25 mg Aspirin (Aspirin 81 Mg Ec Tablet) 81 mg PO DAILY SANDHYA Last Admin: 10/28/22 08:47 Dose: 81 mg Benzocaine (Cetylpyridinium Lozenge) 1 each MUCOUS MEM ONCE PRN PRN Reason: SORE THROAT Benzonatate (Benzonatate 100 Mg Capsule) 200 mg PO Q6H PRN PRN Reason: COUGH Bumetanide (Bumetanide 0.25 Mg/Ml Sdv 4 Ml) 1 mg IVP Q24H [facility] Last Admin: 10/28/22 18:39 Dose: 1 mg Dextrose (Dextrose 50% Syringe 50 Ml) 50 ml IVP PRN PRN; Protocol PRN Reason: hypoglycemia protocol Dextrose (Dextrose 50% Syringe 50 Ml) 25 ml IVP ONCE PRN; Protocol PRN Reason: hypoglycemia protocol Enoxaparin Sodium (Enoxaparin 80 Mg/0.8 Ml Syringe) 70 mg SUBCUT Q12H [facility] Last Admin: 10/28/22 16:11 Dose: 70 mg Fentanyl (Fentanyl 50 Mcg/Ml Inj 2ml) 50 mcg IVP ONCE PRN PRN Reason: Preop or postop pain Glucagon (Glucagon 1 Mg/Ml Inj 1 Ml) 1 mg IM ONCE PRN; Protocol PRN Reason: Adult Acute Hypoglycemia Prot. Hydromorphone HCl (Hydromorphone 1 Mg/Ml Inj 1 Ml) 0.5 mg IVP ONCE PRN PRN Reason: PAIN Dextrose (D5w) 500 mls @ 100 mls/hr IV ONCE PRN; Protocol PRN Reason: Adult Acute Hypoglycemia Prot Sodium Chloride (Sodium Chloride 0.9%) 1,000 mls @ 30 mls/hr IV .Q24H [facility] Stop: 10/29/22 12:29 Last Infusion: 10/28/22 14:10 Dose: Infused Insulin Human Lispro (Insulin Lispro 100 Unit/1 Ml) 0 unit SUBCUT TIDWM [facility]; Protocol Last Admin: 10/28/22 18:05 Dose: 6 unit Magnesium Oxide (Magnesium Oxide 400 Mg Tablet) 400 mg PO BID [facility] Last Admin: 10/28/22 18:05 Dose: 400 mg Methocarbamol (Methocarbamol 750 Mg Tablet) 750 mg PO Q6H PRN PRN Reason: spasms Morphine Sulfate (Morphine Ir 15 Mg Tablet) 15 mg PO Q6H PRN PRN Reason: pAIN Nitroglycerin (Nitroglycerin 0.4 Mg Sublingual Tablet) 0.4 mg SUBLINGUAL Q5M PRN PRN Reason: CHEST PAIN Stop: 10/29/22 06:45 Ondansetron HCl (Ondansetron 2 Mg/Ml Sdv 2 Ml) 4 mg IVP Q6H PRN PRN Reason: NAUSEA AND VOMITING Ondansetron HCl (Ondansetron 2 Mg/Ml Sdv 2 Ml) 4 mg IVP Q2M PRN PRN Reason: NAUSEA Ondansetron HCl (Ondansetron 2 Mg/Ml Sdv 2 Ml) 4 mg IVP ONCE PRN PRN Reason: NAUSEA AND VOMITING Ondansetron HCl (Ondansetron 2 Mg/Ml Sdv 2 Ml) 4 mg IVP Q15M PRN PRN Reason: Nausea/Vomiting PACU PHASE II Potassium Chloride (Potassium Chloride Er 20 Meq Tablet) 40 meq PO DAILY [facility] Last Admin: 10/28/22 08:47 Dose: 40 meq Senna/Docusate Sodium (Sennosides-Docusate Tablet) 1 tab PO DAILY [facility] Last Admin: 10/28/22 08:47 Dose: 1 tab Torsemide (Torsemide 20 Mg Tablet) 20 mg PO DAILY [facility] Discontinued Medications Benzocaine/Butamben/Tetracaine HCl (Cetacaine Delaplaine 5 Gm Can) Confirm Administered Dose 5 spray .ROUTE .STK-MED ONE Stop: 10/28/22 12:06 Bumetanide (Bumetanide 0.25 Mg/Ml Sdv 4 Ml) 1 mg IVP Q12H [facility] Last Admin: 10/27/22 14:18 Dose: 1 mg Furosemide (Furosemide 10 Mg/Ml Sdv 2ml) 20 mg IVP ONCE ONE Stop: 10/26/22 13:05 Last Admin: 10/26/22 13:34 Dose: 20 mg Furosemide (Furosemide 10 Mg/Ml Sdv 10ml) 60 mg IVP Q12H [facility] Last Admin: 10/27/22 11:12 Dose: 60 mg Iohexol (Iohexol 350 Mg/Ml 500 Ml Btl (Per Ml)) 0 ml IV ONCE ONE Stop: 10/27/22 10:39 Last Admin: 10/27/22 10:38 Dose: 100 ml Iohexol (Iohexol 350 Mg/Ml 500 Ml Btl (Per Ml)) 0 ml IV ONCE ONE Stop: 10/28/22 11:35 Last Admin: 10/28/22 11:35 Dose: 100 ml Phenylephrine HCl (Phenylephrine 10 Mg/Ml Sdv 1 Ml) Confirm Administered Dose 10 mg .ROUTE .STK-MED ONE Stop: 10/28/22 12:06 Potassium Chloride (Potassium Chloride Er 20 Meq Tablet) 40 meq PO ONCE ONE Stop: 10/26/22 15:52 Last Admin: 10/26/22 16:04 Dose: 40 meq Propofol (Propofol 10 Mg/Ml Sdv 20 Ml) Confirm Administered Dose 200 mg .ROUTE .STK-MED ONE Stop: 10/28/22 12:06 Regadenoson (Regadenoson 0.4 Mg/5 Ml Syringe) 0.4 mg IVP ONCE PRN PRN Reason: Lexiscan Stress Test Last Admin: 10/28/22 07:46 Dose: 0.4 mg Allergies sacubitril [From Entresto] Allergy (Intermediate, Verified 10/19/22 08:08) rash valsartan [From Entresto] Allergy (Intermediate, Verified 10/19/22 08:08) rash lisinopril Adverse Reaction (Mild, Verified 10/19/22 08:08) Low BP Home Medications aspirin 81 mg tablet,delayed release (Adult Aspirin Regimen) 81 mg PO DAILY 04/03/20 [History Confirmed 10/26/22] metformin 500 mg tablet 250 mg PO BID 04/03/20 [History Confirmed 10/26/22] ascorbic acid (vitamin C) 500 mg tablet (Vitamin C) 500 mg PO DAILY 01/15/22 [History Confirmed 10/26/22] cetirizine 10 mg tablet (Zyrtec) 10 mg PO DAILY 01/15/22 [History Confirmed 10/26/22] cholecalciferol (vitamin D3) 25 mcg (1,000 unit) capsule (Vitamin D3) 25 mcg PO DAILY 01/15/22 [History Confirmed 10/26/22] echinacea 500 mg capsule 500 mg PO DAILY 01/15/22 [History Confirmed 10/26/22] krill 1,000 mg-omega-3 170 mg-dha 50 mg-epa 80 [id number] capsule (krill oil) 1 cap PO DAILY 01/15/22 [History Confirmed 10/26/22] multivitamin 1 tab PO DAILY 01/15/22 [History Confirmed 10/26/22] methocarbamol 750 mg tablet 750 mg PO Q6H PRN spasms #20 tabs 04/25/22 [Rx Confirmed 10/26/22] potassium chloride 8 mEq capsule,extended release 8 meq PO DAILY 30 days #30 caps 10/19/22 [Rx Confirmed 10/26/22] torsemide 20 mg tablet 20 mg PO DAILY #10 tabs 10/19/22 [Rx Confirmed 10/26/22] Discharge Plan Discharge Patient Disposition: Xfer Other Condition: Stable Prescriptions: No Action aspirin [Adult Aspirin Regimen] 81 mg tablet,delayed release (DR/EC) 81 mg PO DAILY metformin 500 mg tablet 250 mg PO BID torsemide 20 mg tablet 20 mg PO DAILY Qty: 10 0RF potassium chloride 8 mEq capsule, extended release 8 meq PO DAILY 30 Days Qty: 30 5RF multivitamin Tablet 1 tab PO DAILY cetirizine [Zyrtec] 10 mg Tablet 10 mg PO DAILY ascorbic acid (vitamin C) [Vitamin C] 500 mg Tablet 500 mg PO DAILY echinacea 500 mg Capsule 500 mg PO DAILY Rx Instructions: administer with meals cholecalciferol (vitamin D3) [Vitamin D3] 25 mcg (1,000 unit) Capsule 25 mcg PO DAILY krill oil [id number] mg Capsule 1 cap PO DAILY methocarbamol 750 mg tablet 750 mg PO Q6H PRN (Reason: spasms) Qty: 20 0RF Referrals: Emigdio Garcia MD [Primary Care Provider] - Transfer Attestations Time Spent in Transfer Care: greater than 30 min Quality Metrics Clinical Quality Measures [ No reported AMI, CVA or VTE this stay] Coding Level of Care Code Acute Code for Chg Fwd Diagnoses Right atrial mass I51.89 CHF (congestive heart failure) I50.9 Dyslipidemia E78.5 Atherosclerosis of coronary artery of [place] heart without angina pectoris I25.10 Coronary Disease-Associated Artery/Lesion type: [place] artery Hx of cardiomyopathy Z86.79 Hypertension I10 Hypertension type: essential hypertension
--- NOTE | 2022-10-29 10:57 | P.PN_ITS ---
Subjective Subjective: Patient is waiting for the bed number No overnight events Patient is stating that he is experiencing abdominal pressure 16,000 Afebrile Vitals/I&O/Wt Last Vital Signs Temp 97.4 F L 10/29/22 07:36 Pulse 100 10/29/22 07:41 Resp 18 10/29/22 07:41 BP 141/92 10/29/22 07:36 Pulse Ox 95 10/29/22 07:41 O2 Del Method Room Air 10/29/22 07:41 O2 Flow Rate 4 10/28/22 13:50 10/28/22 10/29/22 10/29/22 22:59 06:59 14:59 Intake Total 360 / 950 480 / 480 Balance 360 / 950 480 / 480 Physical Exam Narrative: Patient is laying supine Lower extremity swelling has not improved No testicular mass Genital swelling has improved Currently on room air Nonfocal neuro exam S1, S2 Currently on room air Blood pressure 141/92 mmHg Data 10/29/22 04:31 10/29/22 04:31 A&P Assessment and plan (1) HCC (hepatocellular carcinoma): (2) Right atrial mass: (3) Tachycardia: (4) Leg swelling: (5) CHF (congestive heart failure): (6) IVC thrombosis: (7) Diabetes: Qualifiers: Diabetes mellitus type: type 1 Diabetes mellitus complication status: without complication Qualified Code(s): E10.9 - Type 1 diabetes mellitus without complications (8) Renal cancer: Plan IVC thrombosis, IVC syndrome A lot of time was spent in coordination of care I called 3 hospitals and was able to get him accepted at the fourth Patient has been accepted at [facility] Currently on therapeutic Lovenox Remarkable A-fib markers 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
[2022-10-29 11:18] LABS: Glucose Point of Care 199 mg/dL (70-110)
[2022-10-29] MEDS: insulin lispro 100 unit/1 mL SUBCUT (12:15)
[2022-10-29 16:46] LABS: Glucose Point of Care 129 mg/dL (70-110)
--- NOTE | 2022-10-29 19:06 | PC.NURSE ---
This nurse called and gave report to [facility], [facility], and spoke with JURGEN Dyson on .
--- NOTE | 2022-10-29 20:39 | PC.NURSE ---
Patient left floor at this time with flight team and [facility] with all appropriate paperwork. Family at bedside has all patient belongings. [facility] called by this nurse and notified of patient departure. Patient family members Danica and Chino added to contacts at U.
== END 2022-10-29 20:41 | disposition short-term general hospital (02) | DRG 291 ==
LOC: ER 12:36 → MEDSURG 16:07
PROVIDERS: Internal Medicine Cardiovascular Disease; Admitting Provider Internal Medicine; Emergency Provider Family Medicine; PCP Family Medicine; Visit Provider Internal Medicine
PROC: B24BZZZ Ultrasonography of Heart with Aorta (ICD-10-PCS; CPT 93312; principal; 2022-10-28 13:00)
DX: I11.0 Hypertensive heart disease with heart failure (principal); I50.23 Acute on chronic systolic (congestive) heart failure; I82.220 Acute embolism and thrombosis of inferior vena cava; E10.9 Type 1 diabetes mellitus without complications; N28.9 Disorder of kidney and ureter, unspecified; I35.0 Nonrheumatic aortic (valve) stenosis; I25.10 Atherosclerotic heart disease of native coronary artery without angina pectoris; Z95.1 Presence of aortocoronary bypass graft; J34.2 Deviated nasal septum; I42.9 Cardiomyopathy, unspecified; K76.0 Fatty (change of) liver, not elsewhere classified; I95.9 Hypotension, unspecified; E83.42 Hypomagnesemia; E78.5 Hyperlipidemia, unspecified; Z79.82 Long term (current) use of aspirin; Z95.3 Presence of xenogenic heart valve
CPT/HCPCS: 36415; 36416; 71045; 71275; 74177; 78452; 80048; 80053; 81003; 82105; 82550; 82962; 83036; 83735; 83880; 84100; 84484; 85025; 85378; 93005; 93017; 93306; 93312; 93320; 93325; 93970; 93978; 96372; 96374; 96375; 99285; A9500; J0280; J1650; J1815; J1940; J2371; J2704; J2785; J3490; J7030; Q9967